=== PATIENT | female | born 1990 | race African-American/Black ===

== ENCOUNTER 2022-11-10 23:17 | Emergency (ER) | payer OTHER ==
--- OUTSIDE RECORDS SUMMARY | 2022-11-10 23:23 | XMS REPORT | Continuity of Care Document ---
:1990 Author Organization [facility] t Address [address] [place] [address] Care Team Providers Name Role Phone Davy HESTER, Rosie Burt Primary Care Physician [phone] Raisa Ni Attending Clinician Unavailable MAYELA BLANK Attending Clinician Unavailable Reagan Byrd Attending Clinician Unavailable Kisha Velez Attending Clinician Unavailable Elayne Mathews Attending Clinician ELAYNE MATHEWS Attending Clinician Unavailable Johny Calvert Attending Clinician JOHNY CALVERT Attending Clinician Unavailable Reagan Byrd Admitting Clinician Unavailable MAYELA BLANK Admitting Clinician Unavailable Payers Payer Name Policy Type Policy Number Effective Date Expiration Date Reed coffey [facility] [id number] 2020 00:00:00 [employer] PLAN STAR Problems Condition Condition Condition Status Onset Resolution Last Treating Co mments Source Name Details Category Date Date Treatment Clinician Date 6 WEEKS 6 WEEKS Diagnosis Active 2019-042020-02-14 [facility] PREG/PAP PREG/PAP 04-15 01:10:00 l Active 00:00: [place] 02/14/2020 [facility] PELVIC PELVIC Diagnosis Active 2019-042020-02-20 Me moria PAIN/PREGN PAIN/PREGN 04-10 05:15:00 l ANT ANT Active 00:00: Ambrosio n 02/09/2020 00 [facility] Anxiety Anxiety Disease Active Methodi 05-12 st 00:00: Hospita 00 l Adiposity Adiposity Disease Active Met hodi 05-12 [facility] 00:00: Hospita 00 l Acute Acute Disease Active Methodi streptococ streptococ 05-12 jody jody 00:00: Hospita pharyngiti pharyngiti 00 l s s Vitamin D Vitamin D Disease Active Met hodi deficiency deficiency 05-12 00:00: Hospita 00 l History of Past Illness Condition Condition Condition Status Onset Resolution Last Treating Co mments Source Name Details Category Date Date Treatment Clinician Date Encounter Problem 2019-042020-02-16 2020-02-16 Memoria for Encounter 04-15 22:03:48 22:03:48 l supervisio for 18:00: Ambrosio n n of supervisio 00 normal n of , normal unspecifie , d, unspecifie unspecifie d, d unspecifie trimester d trimester 02/14/2020 0 [place] Other Other Problem 2019-042020-02-11 2020-02-11 M emoria specified specified 04-10 22:05:48 22:05:48 l 18:00: Herm arsen related related 00 conditions conditions , , unspecifie unspecifie d d trimester trimester 02/09/2020 02/11/2020 [place] Allergies, Adverse Reactions, Alerts Allergy Allergy Status Severity Reaction(s) Onset Inactive Treating Comm ents Source Name Type Date Date Clinician No Known DA Active [facility] [place] metronid DA Active MO ITCHING [facility] azole -22 [facility] 00:[facility] [place] No Known DA Active U [facility] Allergie 7-17 [facility] 00:[facility] [place] Metronid Propensi Active 2017-04 Upset [facility] azole ty to 0-27 stomach Health adverse 00:00: reaction 00 s to drug No Known Propensi Active Other (See Ga thodi Drug ty to Comments) 05-12 st Allergie adverse 00:00: Hospita s reaction 00 l s to drug Flagyl Flagyl Active Joanneoria levi Kaur Family History Family Member Diagnosis Comments Start Date Stop Date Source Maternal grandfather Prostate cancer [facility] Maternal grandfather Diabetes Meth [facility] Maternal grandfather Heart disease [facility] Maternal grandmother Hypertension [facility] Social History Social Habit Start Date Stop Date Quantity Comments Source History of tobacco Cigarette smoker Yazidism use (finding) [facility] Gender identity [facility] Sexual orientation Method [facility] Alcohol intake 2018-01-27 2018-01-27 Current drinker Kiki mandujano [facility] 00:00:00 00:00:00 of alcohol (finding) Alcohol Comment 2018-01-27 2018-01-27 ~[address] [facility] 00:00:00 00:00:00 other weekend Tobacco use and 2017-01-30 2017-01-30 Smokeless tobacco [facility] exposure 00:00:00 00:00:00 non-user History of Social 2015-11-12 2015-11-12 [facility] function 00:00:00 00:00:00 Hospital Tobacco Comment 2015-11-12 2015-11-12 hookah occasional [facility] 00:00:00 00:00:00 [facility] Sex Ass[birth year] At [birth year] Y[facility]idism 00:00:00 00:00:00 Hospital Smoking Status Start Date Stop Date Source Social History [facility] Light tobacco smoker 2015-11-12 00:00:00 [facility] Medications Ordered Filled Start Stop Current Ordering Indication Dosage Frequency Signature Comments Components Source Medication Medication Date Date Medication? Clinician (SIG) Name Name sulfamethox 2017-04 Yes Acute lower 1{tbl} Q.5D Take 1 [facility] azole-trime 0-27 UTI tablet by [facility] thoprim 00:00: (urinary mouth 2 (BACTRIM 00 tract times DS) 800-160 infection) daily. mg per tablet sulfamethox 2017-04 Yes Acute lower 1{tbl} Q.5D Take 1 [facility] azole-trime 0-27 UTI tablet by [facility] thoprim 00:00: (urinary mouth 2 (BACTRIM 00 tract times DS) 800-160 infection) daily. mg per tablet sulfamethox 2017-04 Yes Acute lower 1{tbl} Q.5D Take 1 [place] azole-trime 0-[address] [facility]: (urinary mouth 2 (BACTRIM 00 tract times DS) 800-160 infection) daily. mg per tablet PHENAZOPYRI 2016-0 Yes Take by Met hodi DINE HCL 8-[address] (AZO ORAL) 14:34: Hospita 51 l PHENAZOPYRI 2016-0 Yes Take by Met hodi DINE HCL 8-[address] (AZO ORAL) 14:34: Hospita 51 l PHENAZOPYRI 2016-0 Yes Take by Met hodi DINE HCL 8-[address] (AZO ORAL) 14:34: Hospita 51 l Immunizations Ordered Immunization Filled Immunization Date Status Commen ts Source Name Name Hepatitis A - 2017-03-17 Completed [facility] Hepatitis B 00:00:00 Hepatitis A - 2017-03-17 Completed [facility] Hepatitis B 00:00:00 Hepatitis A - 2017-03-17 Completed [facility] Hepatitis B 00:00:00 Hepatitis A - 2017-03-17 Completed [facility] Hepatitis B 00:00:00 Hepatitis A - 2017-03-17 Completed [facility] Hepatitis B 00:00:00 Hepatitis A - 2017-03-17 Completed [facility] Hepatitis B 00:00:00 Influenza Vaccine, 2017-01-30 Completed [facility] Seasonal, Injectable 00:00:00 Tdap (Tetanus 2017-01-30 Completed [facility] Toxoid, Reduced 00:00:00 Diphtheria Toxoid And Acellular Pertussis, Absorbed) Hepatitis A - 2017-01-30 Completed [facility] Hepatitis B 00:00:00 Influenza Vaccine, 2017-01-30 Completed [facility] Seasonal, Injectable 00:00:00 Tdap (Tetanus 2017-01-30 Completed [facility] Toxoid, Reduced 00:00:00 Diphtheria Toxoid And Acellular Pertussis, Absorbed) Hepatitis A - 2017-01-30 Completed [facility] Hepatitis B 00:00:00 Influenza Vaccine, 2017-01-30 Completed [facility] Seasonal, Injectable 00:00:00 Tdap (Tetanus 2017-01-30 Completed [facility] Toxoid, Reduced 00:00:00 Diphtheria Toxoid And Acellular Pertussis, Absorbed) Hepatitis A - 2017-01-30 Completed [facility] Hepatitis B 00:00:00 Vital Signs Vital Name Observation Time Observation Value Comments Source Temperature Oral (F) 2020-02-14 09:12:00 98.2 F [facility] Heart Rate 2020-02-14 09:12:00 [facility] Respitory Rate 2020-02-14 09:12:00 [facility] [place] Systolic (mm Hg) 2020-02-14 09:12:00 Jm [facility] Diastolic (mm Hg) 2020-02-14 09:12:00 Mem [facility] Weight 2020-02-14 06:35:00 [facility] Systolic (mm Hg) 2020-02-14 06:35:00 Jm rial [place] Diastolic (mm Hg) 2020-02-14 06:35:00 Mem orial [place] Heart Rate 2020-02-14 06:35:00 [facility] Respitory Rate 2020-02-14 06:35:00 [facility] [place] Temperature Oral (F) 2020-02-14 06:35:00 98.9 F [facility] [place] Systolic (mm Hg) 2020-02-09 10:32:00 Jm rial [place] Diastolic (mm Hg) 2020-02-09 10:32:00 Mem o[facility] Rate 2020-02-09 10:32:00 [facility] [place] Respitory Rate 2020-02-09 10:32:00 [facility] [place] Temperature Oral (F) 2020-02-09 10:32:00 98.1 F [facility] Height 2020-02-09 07:26:00 172.72 cm [facility] [place] BMI Calculated 2020-02-09 07:26:00 [facility] [place] Weight 2020-02-09 07:26:00 [facility] Systolic (mm Hg) 2020-02-09 07:26:00 Jm rial [place] Diastolic (mm Hg) 2020-02-09 07:26:00 Mem orial [facility] Heart Rate 2020-02-09 07:26:00 [facility] Respitory Rate 2020-02-09 07:26:00 [facility] Temperature Oral (F) 2020-02-09 07:26:00 98.2 F [facility] Procedures Procedure Date / Time Performed Performing Clinician Da howe [id number] 2022-04-25 00:00:00 [facility] Plan of Care Planned Activity Planned Date Details Comments Source Future Scheduled 2023-01-01 IMM Influenza [facility] 00:00:00 Seasonal (>/= 19 yrs) [code = IMM Influenza Seasonal (>/= 19 yrs)] Future Scheduled 2022-11-02 COVID-19 VACCINE [facility] Test 10:33:09 (#1) [code = COVID-19 VACCINE (#1)] Future Scheduled 2022-11-02 Screening for [facility] Test 10:33:09 malignant neoplasm of cervix (procedure) [code = 225422153] Future Scheduled 2022-11-02 INFLUENZA VACCINE [facility] Test 10:33:09 [code = INFLUENZA VACCINE] Future Scheduled 2022-07-06 IN[facility]UENZA VACCINE [facility] Test 13:09:51 [code = INFLUENZA VACCINE] Future Scheduled 2022-07-06 COVID-19 VACCINE [facility] Test 13:09:51 (#1) [code = COVID-19 VACCINE (#1)] Future Scheduled 2022-07-06 [facility] Test 13:09:51 malignant neoplasm of cervix (procedure) [code = 924641736] Future Scheduled 2022-03-23 COVID-19 VACCINE [facility] Test 12:52:05 (#1) [code = COVID-19 VACCINE (#1)] Future Scheduled 2022-03-23 [facility] for [facility] Test 12:52:05 malignant neoplasm of cervix (procedure) [code = 250845823] Future Scheduled 2022-03-23 INFLUENZA VACCINE [facility] Test 12:52:05 [code = INFLUENZA VACCINE] Future Scheduled 2022-01-01 IMM Influenza [facility] 00:00:00 Seasonal (>/= 19 yrs) [code = IMM Influenza Seasonal (>/= 19 yrs)] Future Scheduled 2022-01-01 IMM Influenza [facility] 00:00:00 Seasonal (>/= 19 yrs) [code = IMM Influenza Seasonal (>/= 19 yrs)] Future Scheduled 2019-08-25 [facility] 00:00:00 malignant neoplasm of cervix (procedure) [code = 298771162] Future Scheduled 2019-08-25 [facility] 00:00:00 malignant neoplasm of cervix (procedure) [code = 393344953] Future Scheduled 2019-08-25 [facility] 00:00:00 malignant neoplasm of cervix (procedure) [code = 676401128] Future Scheduled 2019-08-25 [facility] 00:00:00 malignant neoplasm of cervix (procedure) [code = 099782770] Future Scheduled 2019-08-25 [facility] 00:00:00 malignant neoplasm of cervix (procedure) [code = 359742492] Future Scheduled 2019-08-25 [facility] 00:00:00 malignant neoplasm of cervix (procedure) [code = 853732233] Future Scheduled 1990-02-24 COVID-19 Vaccine [facility] Test 00:00:00 (#1) [code = COVID-19 Vaccine (#1)] Future Scheduled 1990-02-24 COVID-19 Vaccine [facility] Test 00:00:00 (#1) [code = COVID-19 Vaccine (#1)] Future Scheduled 1990-02-24 COVID-19 Vaccine [facility] Test 00:00:00 (#1) [code = COVID-19 Vaccine (#1)] Encounters Start End Encounter Admission Attending Care Care Encounter Source Date/Time Date/Time Type Type Clinicians Facility Department ID 2022-07-18 2022-07-18 Outpatient Raisa Lugo [facility] [id number] [facility] 09:02:00 09:02:00 [facility] 2022-07-12 2022-07-12 Outpatient JI BLANK Davian [id number] [place] 05:57:52 05:57:52 [facility] 2022-04-24 2022-04-27 Inpatient EM SONYA Byrd OBPP [id number] [facility] 09:53:00 09:53:00 Reagan 23 [facility] [place] 2021-10-17 2021-10-17 Emergency EM Evie Hernandez [facility] [id number] [facility] 01:46:00 05:11:00 Kisha [id number] [facility] [place] 2021-10-17 2021-10-17 Emergency EM TARA Velez COURT[facility] [id number] [facility] 01:46:00 05:11:00 Kisha [facility] 2020-02-14 2020-02-14 Emergency [facility] [id number] [facility] 06:31:07 09:15:00 [facility] 01 [facility] 2020-02-14 2020-02-14 Emergency [facility] [id number] [facility] 06:31:07 09:15:00 r [facility] 01 [facility] 2020-02-14 2020-02-14 Outpatient [place], MHPL MHPL [id number] 00:31:07 03:15:00 [facility] 2020-02-14 2020-02-14 Emergency E FADABDIOLE, MHBL MHBL [id number] MHBL 00:31:00 03:15:00 [facility] 2020-02-09 2020-02-09 Emergency [facility] [id number] [facility] 07:13:28 10:34:00 r [facility] 00 [facility] 2020-02-09 2020-02-09 Emergency [facility] [id number] [facility] 07:13:28 10:34:00 r [facility] 00 [facility] 2020-02-09 2020-02-09 Outpatient Johny Calvert MHPL MHPL [id number] 01:13:28 04:34:00 R Sulema 2020-02-09 2020-02-09 Emergency E JOHNY CALVERT MHBL MHBL [id number] MHBL 01:13:00 04:34:00 2018-01-27 2018-01-27 [facility] [id number] [place] 11:23:31 11:23:31 Health 2017-07-05 2017-07-05 [facility] [id number] [place] 00:00:00 00:00:00 Health 2017-05-05 2017-05-05 [facility]patient [facility] [id number] [place] 00:00:00 00:00:00 Health 2017-05-01 2017-05-01 [facility] [id number] [place] 09:08:43 09:08:43 Health 2017-04-28 2017-04-28 [facility] [id number] [place] 15:35:52 15:35:52 Health 2017-04-28 2017-04-28 [facility] [id number] [place] 00:00:00 00:00:00 Health 2017-04-11 2017-04-11 [facility] [id number] [place] 10:07:11 10:07:11 Health 2017-04-11 2017-04-11 [facility]patient [facility] [id number] [place] 00:00:00 00:00:00 Health 2017-03-23 2017-03-23 [facility] [id number] [place] 00:00:00 00:00:00 Health 2017-03-17 2017-03-17 [facility] [id number] [place] 15:34:52 15:34:52 Health 2017-03-17 2017-03-17 [facility] [id number] [place] 00:00:00 00:00:00 Health 2017-02-27 2017-02-27 [facility] [id number] [place] 00:00:00 00:00:00 Health 2017-01-30 2017-01-30 [facility] [id number] [place] 10:23:58 10:23:58 Health 2017-01-30 2017-01-30 [facility] [id number] [place] 09:10:25 09:10:25 Health Results Test Description Test Time Test Comments Results Result [facility] e Comments - US PELVIS 2022-07-18 COMPLETE 00:00:00 [facility] 1990 Sex: F Patient Name: JACK AGIURRE Unit No: [id number] EXAMS: CPT CODE: [id number] US PELVIS COMPLETE [id number] PROCEDURE INFORMATION: Exam: US Pelvis Complete (Transabdominal), Pelvis (Transvaginal), and US Duplex Artery or Vein (Ovaries) Limited Exam date and time: 07/18/2022 9:32 AM Age: 31 years old Clinical indication: Pelvic pain; Additional info: Pel pain LABS AND CLINICAL REPORTS: Last menstrual period start date: 07/04/2022 TECHNIQUE: Imaging protocol: Real-time transabdominal and transvaginal pelvic ultrasound (complete) with image documentation. Transvaginal imaging was used for better evaluation of the endometrium, adnexa, and/or cervix. Real-time duplex ultrasound scan of the arterial or venous flow of the ovaries with B-mode, color Doppler flow and spectral waveform analysis. Complete Pelvis, Limited Duplex. Duplex exam was performed to evaluate for torsion and other vascular conditions. COMPARISON: No relevant prior studies available. FINDINGS: Uterus: Anteverted uterus measures 9.1 x 4.2 x 5.7 cm. Normal contour and myometrial echogenicity. The endometrium is homogeneous and measures 1.1 cm in thickness. Trace fluid along the endometrial canal. 1.8 x 1.1 x 1.3 cm subserosal fibroid in the anterior uterine body. Right ovary/adnexa: The right ovary measures 3.5 x 1.9 x 2.7 cm. Normal contour. Dominant follicle measures 1.9 cm in diameter. Normal blood flow by color and spectral Doppler. Left ovary/adnexa: The left ovary measures 2.5 x 1.4 x 2.1 cm. Normal contour. Normal blood flow by color and spectral Doppler. Intraperitoneal space: No intraperitoneal fluid. Urinary bladder: Visualized bladder is unremarkable. IMPRESSION: 1. Small subserosal uterine fibroid. 2. Trace fluid along the endometrial canal. at 1213 Reported and signed by: Nathanael Romero MD CC: Raisa Ni MD Technologist: Paris Pena RDMS Probe: Trnscrbd D/ (1213) GCD.CPS Orig Print D/T: S: 07/18/2022 (1213) [facility] NAME: KARYNAJACK Radiology Department PHYS: Raisa Veras MD [address] : 1990 AGE: 31 SEX: F [place], [place] [address] LOC: F.RAD PHONE #: [phone] EXAM DATE: 07/18/2022 STATUS: REG CLI FAX #: [phone] RAD NO: Page 1 Signed Report Patient Name: JACK AGUIRRE Unit No: [id number] EXAMS: CPT CODE: [id number] US PELVIS COMPLETE [id number] (Continued) [facility] NAME: JACK AGUIRRE Radiology Department PHYS: Raisa Veras MD [address] : 1990 AGE: 31 SEX: F [place], [place] [address] LOC: Rodrigo.RAD PHONE #: [phone] EXAM DATE: 07/18/2022 STATUS: REG CLI FAX #: [phone] RAD NO: Page 2 Signed Report - DUP AB/PEL/SC/LTD 2022-07-18 00:00:00 [facility] 1990 Sex: F Patient Name: JACK AGUIRRE Unit No: [id number] EXAMS: CPT CODE: [id number] DUP AB/PEL/SC/LTD 41281 PROCEDURE INFORMATION: Exam: US Pelvis Complete (Transabdominal), Pelvis (Transvaginal), and US Duplex Artery or Vein (Ovaries) Limited Exam date and time: 07/18/2022 9:32 AM Age: 31 years old Clinical indication: Pelvic pain; Additional info: Pel pain LABS AND CLINICAL REPORTS: Last menstrual period start date: 07/04/2022 TECHNIQUE: Imaging protocol: Real-time transabdominal and transvaginal pelvic ultrasound (complete) with image documentation. Transvaginal imaging was used for better evaluation of the endometrium, adnexa, and/or cervix. Real-time duplex ultrasound scan of the arterial or venous flow of the ovaries with B-mode, color Doppler flow and spectral waveform analysis. Complete Pelvis, Limited Duplex. Duplex exam was performed to evaluate for torsion and other vascular conditions. COMPARISON: No relevant prior studies available. FINDINGS: Uterus: Anteverted uterus measures 9.1 x 4.2 x 5.7 cm. Normal contour and myometrial echogenicity. The endometrium is homogeneous and measures 1.1 cm in thickness. Trace fluid along the endometrial canal. 1.8 x 1.1 x 1.3 cm subserosal fibroid in the anterior uterine body. Right ovary/adnexa: The right ovary measures 3.5 x 1.9 x 2.7 cm. Normal contour. Dominant follicle measures 1.9 cm in diameter. Normal blood flow by color and spectral Doppler. Left ovary/adnexa: The left ovary measures 2.5 x 1.4 x 2.1 cm. Normal contour. Normal blood flow by color and spectral Doppler. Intraperitoneal space: No intraperitoneal fluid. Urinary bladder: Visualized bladder is unremarkable. IMPRESSION: 1. Small subserosal uterine fibroid. 2. Trace fluid along the endometrial canal. at 1213 Reported and signed by: Nathanael Romero MD CC: Raisa Ni MD Technologist: Paris Pena RDMS Probe: Trnscrbd D/ (1213) GCD.CPS Orig Print D/T: S: 07/18/2022 (1213) [facility] NAME: JACK AGUIRRE Radiology Department PHYS: Raisa Veras MD [address] : 1990 AGE: 31 SEX: F [place], [place] [address] LOC: BarryRAD PHONE #: [phone] EXAM DATE: 07/18/2022 STATUS: REG CLI FAX #: [phone] RAD NO: Page 1 Signed Report Patient Name: JACK AGUIRRE Unit No: [id number] EXAMS: CPT CODE: [id number] DUP AB/PEL/SC/LTD 21881 (Continued) [facility] NAME: JACK AGUIRRE Radiology Department PHYS: Raisa Veras MD [address] : 1990 AGE: 31 SEX: [place] [address] LOC: F.RAD PHONE #: [phone] EXAM DATE: 07/18/2022 STATUS: REG CLI FAX #: [phone] RAD NO: Page 2 Signed Report - US TRANSVAGINAL 2022-07-18 W/PELVIS 00:00:00 [facility] 1990 Sex: F Patient Name: JACK AGUIRRE Unit No: [id number] EXAMS: CPT CODE: [id number] US TRANSVAGINAL W/PELVIS 17010 PROCEDURE INFORMATION: Exam: US Pelvis Complete (Transabdominal), Pelvis (Transvaginal), and US Duplex Artery or Vein (Ovaries) Limited Exam date and time: 07/18/2022 9:32 AM Age: 31 years old Clinical indication: Pelvic pain; Additional info: Pel pain LABS AND CLINICAL REPORTS: Last menstrual period start date: 07/04/2022 TECHNIQUE: Imaging protocol: Real-time transabdominal and transvaginal pelvic ultrasound (complete) with image documentation. Transvaginal imaging was used for better evaluation of the endometrium, adnexa, and/or cervix. Real-time duplex ultrasound scan of the arterial or venous flow of the ovaries with B-mode, color Doppler flow and spectral waveform analysis. Complete Pelvis, Limited Duplex. Duplex exam was performed to evaluate for torsion and other vascular conditions. COMPARISON: No relevant prior studies available. FINDINGS: Uterus: Anteverted uterus measures 9.1 x 4.2 x 5.7 cm. Normal contour and myometrial echogenicity. The endometrium is homogeneous and measures 1.1 cm in thickness. Trace fluid along the endometrial canal. 1.8 x 1.1 x 1.3 cm subserosal fibroid in the anterior uterine body. Right ovary/adnexa: The right ovary measures 3.5 x 1.9 x 2.7 cm. Normal contour. Dominant follicle measures 1.9 cm in diameter. Normal blood flow by color and spectral Doppler. Left ovary/adnexa: The left ovary measures 2.5 x 1.4 x 2.1 cm. Normal contour. Normal blood flow by color and spectral Doppler. Intraperitoneal space: No intraperitoneal fluid. Urinary bladder: Visualized bladder is unremarkable. IMPRESSION: 1. Small subserosal uterine fibroid. 2. Trace fluid along the endometrial canal. at 1213 Reported and signed by: Nathanael Romero MD CC: Raisa Ni MD Technologist: Paris Pena RDMS Probe: [id number] Trnscrbd D/ (1213) GCD.CPS Orig Print D/T: S: 07/18/2022 (1213) [facility] NAME: JACK AGUIRRE Radiology Department PHYS: Raisa Veras MD [address] : 1990 AGE: 31 SEX: F [place] [address] LOC: F.RAD PHONE #: [phone] EXAM DATE: 07/18/2022 STATUS: REG CLI FAX #: [phone] RAD NO: Page 1 Signed Report Patient Name: JACK AGUIRRE Unit No: [id number] EXAMS: CPT CODE: [id number] US TRANSVAGINAL W/PELVIS 19672 (Continued) [facility] NAME: JACK AGUIRRE Radiology Department PHYS: Raisa Veras MD [address] : 1990 AGE: 31 SEX: F [place] [address] LOC: SIENA PHONE #: [phone] EXAM DATE: 07/18/2022 STATUS: REG CHEL FAX #: [phone] RAD NO: Page 2 Signed Report HGB HCT 2022-04-26 13:46:00 Test Item Value Reference Range Interpretation Comme nts HEMOGLOBIN (test code = HGB) 10.5 g/dL 10.1-13.8 N HEMATOCRIT (test code = HCT) 32.8 % 32.5-41.8 N AG HEPATITIS B [id number] 12:19:00 Test Item Value Reference Range Interpretation Comments AG HEPATITIS B SURFACE (test code NONREACTIVE NONREACTIVE = HBSAG) AB HEPATITIS C [id number] 12:19:00 Test Item Value Reference Range Interpretation Comments AB HEPATITIS C (test code = NONREACTIVE NONREACTIVE HCVAB) SIGNAL TO CUTOFF (test code = <0.02 <0.80 N CUTOFF) AB [id number] 12:19:00 Test Item Value Reference Range Interpretation Comments AB TREPONEMA (test code = TREPAB) NONREACTIVE NONREACTIVE AB HIV 1 12:19:00 Test Item Value Reference Range Interpretation Comments AB HIV 1 2 (test NONREACTIVE NONREACTIVE Done by [facility] code = [id number]) 4th Gen HIV Ag/Ab Combo Screen CBC W/AUTO [id number] 10:35:00 Test Item Value Reference Range Interpretation Comments WHITE BLOOD CELL (test code = WBC) 6.6 K/mm3 6.5-12.3 N RED BLOOD CELL (test code = RBC) 4.17 M/mm3 3.51-4.69 N HEMOGLOBIN (test code = HGB) 11.9 g/dL 10.1-13.8 N HEMATOCRIT (test code = HCT) 36.4 % 32.5-41.8 N MEAN CELL VOLUME (test code = MCV) 87.3 fL 84.6-96.6 N MEAN CELL HGB (test code = MCH) 28.5 pg 27.3-33.9 N MEAN CELL HGB CONCETRATION (test 32.7 gm/dL 32.0-34.2 N code = MCHC) RED CELL DISTRIBUTION WIDTH (test 14.2 % 12.2-16.3 N code = RDW) PLATELET COUNT (test code = PLT) 163 K/mm3 134-363 N MEAN PLATELET VOLUME (test code = 12.6 fL 9.2-12.7 N MPV) NEUTROPHIL % (test code = NT%) 68.9 % 57.9-77.3 N LYMPHOCYTE % (test code = LY%) 25.5 % 14.5-29.7 N MONOCYTE % (test code = MO%) 4.4 % 3.6-10.2 N EOSINOPHIL % (test code = EO%) 0.6 % 0.0-3.0 N BASOPHIL % (test code = BA%) 0.3 % 0.1-0.9 N NEUTROPHIL # (test code = NT#) 4.6 K/mm3 LYMPHOCYTE # (test code = LY#) 1.7 K/mm3 MONOCYTE # (test code = MO#) 0.3 K/mm3 EOSINOPHIL # (test code = EO#) 0.04 K/mm3 BASOPHIL # (test code = BA#) 0.0 K/mm3 RBC MORPHOLOGY REQUIRED (test code NORMAL NORMAL = RBCM) PLATELET MORPHOLOGY REQUIRED (test NORMAL NORMAL code = PLTMR) UA RFLX MICR CULT IF [id number] 05:15:00 Test Item Value Reference Range Interpretation Comments UA COLOR (test code = COLU) YELLOW YELLOW UA APPEARANCE (test code = Slightly-Cloudy CLEAR APPU) UA GLUCOSE DIPSTICK (test NEGATIVE NEG code = DGLUU) UA BILIRUBIN DIPSTICK (test NEGATIVE NEG code = BILU) UA KETONE DIPSTICK (test code NEGATIVE NEG = KETU) UA SPECIFIC GRAVITY (test 1.031 1.001-1.035 N code = SGU) UA BLOOD DIPSTICK (test code NEG NEG = DEBRA) UA PH DIPSTICK (test code = 5.0 5-9 LETICIA) UA PROTEIN DIPSTICK (test NEGATIVE NEG code = PROU) UA UROBILINIOGEN DIPSTICK NEGATIVE mg/dL NEG (test code = URO) UA NITRITE DIPSTICK (test NEG NEG code = ANDRE) UA LEUKOCYTE ESTERASE NEG NEG DIPSTICK (test code = LEUU) UA WBC (test code = WBCU) 0-2 #/hpf NONE SEEN UA RBC (test code = RBCU) 0-2 #/hpf NONE SEEN UA EPITHELIAL CELLS (test MODERATE #/HPF RARE-FEW A code = EPIU) UA MUCUS (test code = MUCU) RARE NONE SEEN Indication for culture: Suprapubic PainSpecimen Description: CLEAN CATCH COMPREHENSIVE METABOLIC [id number] 02:53:00 Test Item Value Reference Range Interpretation Comments SODIUM (test code = NA) 132 mEq/L 135-145 L POTASSIUM (test code = K) 3.8 mEq/L 3.5-5.0 N CHLORIDE (test code = CL) 101 mEq/L 100-115 N CARBON DIOXIDE (test code = CO2) 25 mEq/L 22-31 N ANION GAP (test code = GAP) 10.10 10-20 N GLUCOSE (test code = GLU) 116 mg/dL 65-110 H BLOOD UREA NITROGEN (test code = 14 mg/dL 7-18 N BUN) GLOMERULAR FILTRATION RATE (test 64 ml/min >60 N code = GFR) CREATININE (test code = CREAT) 1.1 mg/dL 0.5-1.0 H TOTAL PROTEIN (test code = PROT) 7.5 gm/dL 6.3-8.2 N ALBUMIN (test code = ALB) 3.1 gm/dL 3.4-4.8 L CALCIUM (test code = CA) 8.7 mg/dL 8.4-10.2 N BILIRUBIN TOTAL (test code = BILT) 0.2 mg/dL 0.2-1.0 N SGOT/AST (test code = AST) 16 units/L 15-37 N SGPT/ALT (test code = ALT) 33 units/L 12-78 N ALKALINE PHOSPHATASE TOTAL (test 59 units/L 46-116 N code = ALKP) COVID 19 Asymptomatic IH [id number] 02:37:00 Test Item Value Reference Range Interpretation Comments COVID 19 NEGATIVE NEGATIVE This test has b een Asymptomatic IH AG authorize d only for the (test code = detection ofpro teins from COVNONPUIAG) SARS-CoV-2, not for any other viruses orpathogens. Ne gative results should be treated as presumptive andconfirmed wi th a molecular assay , if necessary for patientmanageme nt. Negative result s do not rule out COVID- 19 andshould not b e used as the sole basis for treatment orpat ient management deci sions, including infec tion controldecision s. Negative result s should be considered i n thecontext of a patient's recent exposure s, history and thepresence of clinical signs and symptoms consis tent withCOVID-19. T his test has not been FD A cleared or approved; th e test hasbeen authori yane by FDA under an Emerge ncy Use Authorization(E UA) for use by laborato sanjay certified under the CLIA thatmeet the re quirements to perform mode rate, high or waivedcomple xity tests. This milan t is authorized for use at thePoint of Car e (POC), i.e., in patien t care settingsoperati ng under a CLIA Certificat e of Waiver, Certifi franca ofCompliance, o r Certificate of Accreditation. This test is only authori yane for the duration of thedeclaration that circumstances e xist justifying theauthorizatio n of emergency use o f in vitro diagnostic test sfor detection and/o r diagnosis of CO VID-19 under Bikrzur87 4(b)(1) of the Act, 21 U.S .C. 360bbb-3(b)(1), unless theauthorizatio n is terminated or r evoked sooner. CBC W/AUTO [id number] 02:25:00 Test Item Value Reference Range Interpretation Comments WHITE BLOOD CELL (test code = WBC) 7.6 K/mm3 6.5-12.3 N RED BLOOD CELL (test code = RBC) 4.37 M/mm3 3.51-4.69 N HEMOGLOBIN (test code = HGB) 12.9 g/dL 10.1-13.8 N HEMATOCRIT (test code = HCT) 39.3 % 32.5-41.8 N MEAN CELL VOLUME (test code = MCV) 89.9 fL 84.6-96.6 N MEAN CELL HGB (test code = MCH) 29.5 pg 27.3-33.9 N MEAN CELL HGB CONCETRATION (test 32.8 gm/dL 32.0-34.2 N code = MCHC) RED CELL DISTRIBUTION WIDTH (test 13.5 % 12.2-16.3 N code = RDW) PLATELET COUNT (test code = PLT) 254 K/mm3 134-363 N MEAN PLATELET VOLUME (test code = 9.8 fL 9.2-12.7 N MPV) NEUTROPHIL % (test code = NT%) 66.6 % 57.9-77.3 N LYMPHOCYTE % (test code = LY%) 25.5 % 14.5-29.7 N MONOCYTE % (test code = MO%) 6.6 % 3.6-10.2 N EOSINOPHIL % (test code = EO%) 0.7 % 0.0-3.0 N BASOPHIL % (test code = BA%) 0.3 % 0.1-0.9 N NEUTROPHIL # (test code = NT#) 5.1 K/mm3 LYMPHOCYTE # (test code = LY#) 1.9 K/mm3 MONOCYTE # (test code = MO#) 0.5 K/mm3 EOSINOPHIL # (test code = EO#) 0.05 K/mm3 BASOPHIL # (test code = BA#) 0.0 K/mm3 RBC MORPHOLOGY REQUIRED (test code NORMAL NORMAL = RBCM) PLATELET MORPHOLOGY REQUIRED (test NORMAL NORMAL code = PLTMR) [id number] 08:10:00 Test Item Value Reference Range Interpretation Comments hCG Tot (test code = hCG Tot) [id number] [id number] 08:10:00 Test Item Value Reference Range Interpretation Comments hCG Tot (test code = hCG Tot) [id number] [facility] [id number] 08:10:00 Test Item Value Reference Range Interpretation Comments hCG Tot (test code = hCG Tot) [address] [facility] [id number] 08:10:00 Test Item Value Reference Range Interpretation Comments hCG Tot (test code = hCG Tot) [address] [facility] [id number] 08:10:00 Test Item Value Reference Range Interpretation Comments hCG Tot (test code = hCG Tot) [id number] [facility] [id number] 08:10:00 Test Item Value Reference Range Interpretation Comments hCG Tot (test code = hCG Tot) [id number] [facility] [id number] 08:02:00 Test Item Value Reference Range Interpretation Comments UA Color (test code = Yellow *NA*(02/09/20 UA Color) 2:02 AM) [facility] [id number] 08:02:00 Test Item Value Reference Range Interpretation Comments UA Turbidity (test code = Clear (02/09/20 2:02 UA Turbidity) AM) [facility] [id number] 08:02:00 Test Item Value Reference Range Interpretation Comments UA Spec Grav (test code = UA Spec 1.020 1 Grav) [facility] [id number] 08:02:00 Test Item Value Reference Range Interpretation Comments UA pH (test code = UA pH) 5.0 1 5.0-8.0 [facility] [id number] 08:02:00 Test Item Value Reference Range Interpretation Comments UA Color (test code = Yellow *NA*(02/09/20 UA Color) 2:02 AM) [facility] [id number] 08:02:00 Test Item Value Reference Range Interpretation Comments UA Turbidity (test code = Clear (02/09/20 2:02 UA Turbidity) AM) [facility] [id number] 08:02:00 Test Item Value Reference Range Interpretation Comments UA Spec Grav (test code = UA Spec 1.020 1 Grav) [facility] [id number] 08:02:00 Test Item Value Reference Range Interpretation Comments UA pH (test code = UA pH) 5.0 1 5.0-8.0 [facility] [id number] 08:02:00 Test Item Value Reference Range Interpretation Comments UA Protein (test code = UA Negative mg/dL Protein) [facility] [id number] 08:02:00 Test Item Value Reference Range Interpretation Comments UA Glucose (test code = UA Negative mg/dL Glucose) [facility] [id number] 08:02:00 Test Item Value Reference Range Interpretation Comments UA Ketones (test code = UA Negative mg/dL Ketones) [facility] [id number] 08:02:00 Test Item Value Reference Range Interpretation Comments UA Bili (test code = Negative *NA*(02/09/20 UA Bili) 2:02 AM) [facility] [id number] 08:02:00 Test Item Value Reference Range Interpretation Comments UA Blood (test code = Negative (02/09/20 2:02 UA Blood) AM) [facility] [id number] 08:02:00 Test Item Value Reference Range Interpretation Comments UA Nitrite (test code Negative (02/09/20 2:02 = UA Nitrite) AM) [facility] [id number] 08:02:00 Test Item Value Reference Range Interpretation Comments UA Protein (test code = UA Negative mg/dL Protein) [facility] [id number] 08:02:00 Test Item Value Reference Range Interpretation Comments UA Leuk Est (test code Small *ABN*(02/09/20 = UA Leuk Est) 2:02 AM) [facility] [id number] 08:02:00 Test Item Value Reference Range Interpretation Comments UA Sq Epi (test code = UA Sq Epi) Few /LPF [facility] [id number] 08:02:00 Test Item Value Reference Range Interpretation Comments UA WBC (test code = 1 See_Comment [Automa jermain message] The UA WBC) system which ge nerated this result transmit jermian reference range : <=5. The reference range was not used to interpr et this result as janice l/abnormal. [facility] [id number] 08:02:00 Test Item Value Reference Range Interpretation Comments UA RBC (test code = 4 See_Comment [Automa jermain message] The UA RBC) system which ge nerated this result transmit jermain reference range : <=2. The reference range was not used to interpr et this result as janice l/abnormal. [facility] [id number] 08:02:00 Test Item Value Reference Range Interpretation Comments UA Mucus (test code = UA Mucus) Few /LPF [facility] [id number] 08:02:00 Test Item Value Reference Range Interpretation Comments UA Urobilinogen (test code = UA <=1.0 mg/dL 0.1-1.0 Urobilinogen) [facility] [id number] 08:02:00 Test Item Value Reference Range Interpretation Comments UA Glucose (test code = UA Negative mg/dL Glucose) [facility] [id number] 08:02:00 Test Item Value Reference Range Interpretation Comments UA Ketones (test code = UA Negative mg/dL Ketones) [facility] [id number] 08:02:00 Test Item Value Reference Range Interpretation Comments UA Bili (test code = Negative *NA*(02/09/20 UA Bili) 2:02 AM) [facility] [id number] 08:02:00 Test Item Value Reference Range Interpretation Comments UA Color (test code = Yellow *NA*(02/09/20 UA Color) 2:02 AM) [facility] [id number] 08:02:00 Test Item Value Reference Range Interpretation Comments UA Turbidity (test code = Clear (02/09/20 2:02 UA Turbidity) AM) [facility] [id number] 08:02:00 Test Item Value Reference Range Interpretation Comments UA Blood (test code = Negative (02/09/20 2:02 UA Blood) AM) [facility] [id number] 08:02:00 Test Item Value Reference Range Interpretation Comments UA Spec Grav (test code = UA Spec 1.020 1 Grav) [facility] [id number] 08:02:00 Test Item Value Reference Range Interpretation Comments UA pH (test code = UA pH) 5.0 1 5.0-8.0 [facility] [id number] 08:02:00 Test Item Value Reference Range Interpretation Comments UA Protein (test code = UA Negative mg/dL Protein) [facility] [id number] 08:02:00 Test Item Value Reference Range Interpretation Comments UA Glucose (test code = UA Negative mg/dL Glucose) [facility] [id number] 08:02:00 Test Item Value Reference Range Interpretation Comments UA Ketones (test code = UA Negative mg/dL Ketones) [facility] [id number] 08:02:00 Test Item Value Reference Range Interpretation Comments UA Bili (test code = Negative *NA*(02/09/20 UA Bili) 2:02 AM) [facility] [id number] 08:02:00 Test Item Value Reference Range Interpretation Comments UA Blood (test code = Negative (02/09/20 2:02 UA Blood) AM) [facility] [id number] 08:02:00 Test Item Value Reference Range Interpretation Comments UA Nitrite (test code Negative (02/09/20 2:02 = UA Nitrite) AM) [facility] [id number] 08:02:00 Test Item Value Reference Range Interpretation Comments UA Leuk Est (test code Small *ABN*(02/09/20 = UA Leuk Est) 2:02 AM) [facility] [id number] 08:02:00 Test Item Value Reference Range Interpretation Comments UA Sq Epi (test code = UA Sq Epi) Few /LPF [facility] [id number] 08:02:00 Test Item Value Reference Range Interpretation Comments UA Nitrite (test code Negative (02/09/20 2:02 = UA Nitrite) AM) [facility] [id number] 08:02:00 Test Item Value Reference Range Interpretation Comments UA WBC (test code = 1 See_Comment [Automa jermain message] The UA WBC) system which ge nerated this result transmit jermain reference range : <=5. The reference range was not used to interpr et this result as janice l/abnormal. [facility] [id number] 08:02:00 Test Item Value Reference Range Interpretation Comments UA RBC (test code = 4 See_Comment [Automa jermain message] The UA RBC) system which ge nerated this result transmit jermain reference range : <=2. The reference range was not used to interpr et this result as janice l/abnormal. [facility] [id number] 08:02:00 Test Item Value Reference Range Interpretation Comments UA Mucus (test code = UA Mucus) Few /LPF [facility] [id number] 08:02:00 Test Item Value Reference Range Interpretation Comments UA Urobilinogen (test code = UA <=1.0 mg/dL 0.1-1.0 Urobilinogen) [facility] [id number] 08:02:00 Test Item Value Reference Range Interpretation Comments UA Leuk Est (test code Small *ABN*(02/09/20 = UA Leuk Est) 2:02 AM) [facility] [id number] 08:02:00 Test Item Value Reference Range Interpretation Comments UA Sq Epi (test code = UA Sq Epi) Few /LPF [facility] [id number] 08:02:00 Test Item Value Reference Range Interpretation Comments UA WBC (test code = 1 See_Comment [Automa jermain message] The UA WBC) system which ge nerated this result transmit jermain reference range : <=5. The reference range was not used to interpr et this result as janice l/abnormal. [facility] [id number] 08:02:00 Test Item Value Reference Range Interpretation Comments UA Color (test code = Yellow *NA*(02/09/20 UA Color) 2:02 AM) [facility] [id number] 08:02:00 Test Item Value Reference Range Interpretation Comments UA Turbidity (test code = Clear (02/09/20 2:02 UA Turbidity) AM) [facility] [id number] 08:02:00 Test Item Value Reference Range Interpretation Comments UA Spec Grav (test code = UA Spec 1.020 1 Grav) [facility] [id number] 08:02:00 Test Item Value Reference Range Interpretation Comments UA pH (test code = UA pH) 5.0 1 5.0-8.0 [facility] [id number] 08:02:00 Test Item Value Reference Range Interpretation Comments UA RBC (test code = 4 See_Comment [Automa jermain message] The UA RBC) system which ge nerated this result transmit jermain reference range : <=2. The reference range was not used to interpr et this result as janice l/abnormal. [facility] [id number] 08:02:00 Test Item Value Reference Range Interpretation Comments UA Protein (test code = UA Negative mg/dL Protein) [facility] [id number] 08:02:00 Test Item Value Reference Range Interpretation Comments UA Glucose (test code = UA Negative mg/dL Glucose) [facility] [id number] 08:02:00 Test Item Value Reference Range Interpretation Comments UA Ketones (test code = UA Negative mg/dL Ketones) [facility] [id number] 08:02:00 Test Item Value Reference Range Interpretation Comments UA Bili (test code = Negative *NA*(02/09/20 UA Bili) 2:02 AM) [facility] [id number] 08:02:00 Test Item Value Reference Range Interpretation Comments UA Blood (test code = Negative (02/09/20 2:02 UA Blood) AM) [facility] [id number] 08:02:00 Test Item Value Reference Range Interpretation Comments UA Nitrite (test code Negative (02/09/20 2:02 = UA Nitrite) AM) [facility] [id number] 08:02:00 Test Item Value Reference Range Interpretation Comments UA Leuk Est (test code Small *ABN*(02/09/20 = UA Leuk Est) 2:02 AM) [facility] [id number] 08:02:00 Test Item Value Reference Range Interpretation Comments UA Sq Epi (test code = UA Sq Epi) Few /LPF [facility] [id number] 08:02:00 Test Item Value Reference Range Interpretation Comments UA WBC (test code = 1 See_Comment [Automa jermain message] The UA WBC) system which ge nerated this result transmit jermain reference range : <=5. The reference range was not used to interpr et this result as janice l/abnormal. [facility] [id number] 08:02:00 Test Item Value Reference Range Interpretation Comments UA RBC (test code = 4 See_Comment [Automa jermain message] The UA RBC) system which ge nerated this result transmit jermain reference range : <=2. The reference range was not used to interpr et this result as janice l/abnormal. [facility] [id number] 08:02:00 Test Item Value Reference Range Interpretation Comments UA Mucus (test code = UA Mucus) Few /LPF [facility] [id number] 08:02:00 Test Item Value Reference Range Interpretation Comments UA Mucus (test code = UA Mucus) Few /LPF [facility] [id number] 08:02:00 Test Item Value Reference Range Interpretation Comments UA Urobilinogen (test code = UA <=1.0 mg/dL 0.1-1.0 Urobilinogen) [facility] [id number] 08:02:00 Test Item Value Reference Range Interpretation Comments UA Urobilinogen (test code = UA <=1.0 mg/dL 0.1-1.0 Urobilinogen) [facility] [id number] 08:02:00 Test Item Value Reference Range Interpretation Comments UA Color (test code = Yellow *NA*(02/09/20 UA Color) 2:02 AM) [facility] [id number] 08:02:00 Test Item Value Reference Range Interpretation Comments UA Turbidity (test code = Clear (02/09/20 2:02 UA Turbidity) AM) [facility] [id number] 08:02:00 Test Item Value Reference Range Interpretation Comments UA Spec Grav (test code = UA Spec 1.020 1 Grav) [facility] AND [id number] 08:02:00 Test Item Value Reference Range Interpretation Comments UA pH (test code = UA pH) 5.0 1 5.0-8.0 [facility] AND [id number] 08:02:00 Test Item Value Reference Range Interpretation Comments UA Protein (test code = UA Negative mg/dL Protein) [facility] AND [id number] 08:02:00 Test Item Value Reference Range Interpretation Comments UA Glucose (test code = UA Negative mg/dL Glucose) [facility] AND [id number] 08:02:00 Test Item Value Reference Range Interpretation Comments UA Ketones (test code = UA Negative mg/dL Ketones) [facility] AND [id number] 08:02:00 Test Item Value Reference Range Interpretation Comments UA Bili (test code = Negative *NA*(02/09/20 UA Bili) 2:02 AM) [facility] AND [id number] 08:02:00 Test Item Value Reference Range Interpretation Comments UA Blood (test code = Negative (02/09/20 2:02 UA Blood) AM) [facility] AND [id number] 08:02:00 Test Item Value Reference Range Interpretation Comments UA Nitrite (test code Negative (02/09/20 2:02 = UA Nitrite) AM) [facility] [id number] 08:02:00 Test Item Value Reference Range Interpretation Comments UA Leuk Est (test code Small *ABN*(02/09/20 = UA Leuk Est) 2:02 AM) [facility] AND [id number] 08:02:00 Test Item Value Reference Range Interpretation Comments UA Sq Epi (test code = UA Sq Epi) Few /LPF [facility] [id number] 08:02:00 Test Item Value Reference Range Interpretation Comments UA WBC (test code = 1 See_Comment [Automa jermain message] The UA WBC) system which ge nerated this result transmit jermain reference range : <=5. The reference range was not used to interpr et this result as janice l/abnormal. [facility] [id number] 08:02:00 Test Item Value Reference Range Interpretation Comments UA RBC (test code = 4 See_Comment [Automa jermain message] The UA RBC) system which ge nerated this result transmit jermain reference range : <=2. The reference range was not used to interpr et this result as janice l/abnormal. [facility] [id number] 08:02:00 Test Item Value Reference Range Interpretation Comments UA Mucus (test code = UA Mucus) Few /LPF [facility] [id number] 08:02:00 Test Item Value Reference Range Interpretation Comments UA Urobilinogen (test code = UA <=1.0 mg/dL 0.1-1.0 Urobilinogen) [facility] [id number] 08:02:00 Test Item Value Reference Range Interpretation Comments UA Color (test code = Yellow *NA*(02/09/20 UA Color) 2:02 AM) [facility] [id number] 08:02:00 Test Item Value Reference Range Interpretation Comments UA Turbidity (test code = Clear (02/09/20 2:02 UA Turbidity) AM) [facility] [id number] 08:02:00 Test Item Value Reference Range Interpretation Comments UA Spec Grav (test code = UA Spec 1.020 1 Grav) [facility] [id number] 08:02:00 Test Item Value Reference Range Interpretation Comments UA pH (test code = UA pH) 5.0 1 5.0-8.0 [facility] [id number] 08:02:00 Test Item Value Reference Range Interpretation Comments UA Protein (test code = UA Negative mg/dL Protein) [facility] [id number] 08:02:00 Test Item Value Reference Range Interpretation Comments UA Glucose (test code = UA Negative mg/dL Glucose) [facility] [id number] 08:02:00 Test Item Value Reference Range Interpretation Comments UA Ketones (test code = UA Negative mg/dL Ketones) [facility] [id number] 08:02:00 Test Item Value Reference Range Interpretation Comments UA Bili (test code = Negative *NA*(02/09/20 UA Bili) 2:02 AM) [facility] [id number] 08:02:00 Test Item Value Reference Range Interpretation Comments UA Blood (test code = Negative (02/09/20 2:02 UA Blood) AM) [facility] [id number] 08:02:00 Test Item Value Reference Range Interpretation Comments UA Nitrite (test code Negative (02/09/20 2:02 = UA Nitrite) AM) [facility] AND [id number] 08:02:00 Test Item Value Reference Range Interpretation Comments UA Leuk Est (test code Small *ABN*(02/09/20 = UA Leuk Est) 2:02 AM) [facility] AND [id number] 08:02:00 Test Item Value Reference Range Interpretation Comments UA Sq Epi (test code = UA Sq Epi) Few /[facility] [id number] 08:02:00 Test Item Value Reference Range Interpretation Comments UA WBC (test code = 1 See_Comment [Automa jermain message] The UA WBC) system which ge nerated this result transmit jermain reference range : <=5. The reference range was not used to interpr et this result as janice l/abnormal. [facility] [id number] 08:02:00 Test Item Value Reference Range Interpretation Comments UA RBC (test code = 4 See_Comment [Automa jermain message] The UA RBC) system which ge nerated this result transmit jermain reference range : <=2. The reference range was not used to interpr et this result as janice l/abnormal. [facility] [id number] 08:02:00 Test Item Value Reference Range Interpretation Comments UA Mucus (test code = UA Mucus) Few /LPF [facility] [id number] 08:02:00 Test Item Value Reference Range Interpretation Comments UA Urobilinogen (test code = UA <=1.0 mg/dL 0.1-1.0 Urobilinogen) [facility]2020-11-08 07:43:00 Test Item Value Reference Range Interpretation Comments BUN (test code = BUN) 13 7-22 [facility]2020-11-08 07:43:00 Test Item Value Reference Range Interpretation Comments Creatinine Lvl (test code = Creatinine 0.97 0.50-1.40 Lvl) [facility]2020-11-08 07:43:00 Test Item Value Reference Range Interpretation Comments Sodium Lvl (test code = Sodium Lvl) 140 135-145 [facility]2020-11-08 07:43:00 Test Item Value Reference Range Interpretation Comments Potassium Lvl (test code = Potassium 3.7 3.5-5.1 Lvl) [facility]2020-11-08 07:43:00 Test Item Value Reference Range Interpretation Comments Chloride Lvl (test code = Chloride Lvl) 108 95-109 [facility]2020-11-08 07:43:00 Test Item Value Reference Range Interpretation Comments CO2 (test code = CO2) 28 24-32 [facility]2020-11-08 07:43:00 Test Item Value Reference Range Interpretation Comments Calcium Lvl (test code = Calcium Lvl) 8.7 8.5-10.5 [facility]2020-11-08 07:43:00 Test Item Value Reference Range Interpretation Comments AGAP (test code = AGAP) 7.7 10.0-20.0 [facility]2020-11-08 07:43:00 Test Item Value Reference Range Interpretation Comments eGFR (test code = eGFR) 91 [facility] AustinEbprhuqSPYTXGIHXPOXJ4369-88-92 07:43:00 Test Item Value Reference Range Interpretation Comments hCG Tot (test code = hCG Tot) 3554 [facility] HospitalGdgzslrCWOPPOSSLU7648-52-94 07:43:00 Test Item Value Reference Range Interpretation Comments WBC (test code = WBC) 7.3 3.7-10.4 [facility] HospitalJntkzuyABXGXEWEKV1274-80-54 07:43:00 Test Item Value Reference Range Interpretation Comments RBC (test code = RBC) 4.01 4.20-5.40 [facility] HospitalAadzhtaIMNAAXLGJN8805-89-45 07:43:00 Test Item Value Reference Range Interpretation Comments Hgb (test code = Hgb) 11.8 12.0-16.0 [facility] HospitalVfhjhfpMNJOMEUIPJ7516-01-01 07:43:00 Test Item Value Reference Range Interpretation Comments Hct (test code = Hct) 35.7 36.0-48.0 [facility] HospitalFoeekkaCEPHFOHVEJ6073-38-62 07:43:00 Test Item Value Reference Range Interpretation Comments MCV (test code = MCV) 89.2 80.0-98.0 [facility] HospitalPlnfzsnRHCRILJIIQ7348-05-33 07:43:00 Test Item Value Reference Range Interpretation Comments MCH (test code = MCH) 29.5 pg 27.0-31.0 [facility] HospitalKogkawmLGYLZGDRRQ9215-68-73 07:43:00 Test Item Value Reference Range Interpretation Comments MCHC (test code = MCHC) 33.0 32.0-36.0 [facility] HospitalAvwyvdxJEFCAFNARU5042-59-04 07:43:00 Test Item Value Reference Range Interpretation Comments RDW (test code = RDW) 13.9 11.5-14.5 [facility] HospitalIkqdwsjECYXGZBUGB3533-73-03 07:43:00 Test Item Value Reference Range Interpretation Comments Platelet (test code = Platelet) 229 133-450 [facility] HospitalChewlvpVFPTIBYPLI6451-91-49 07:43:00 Test Item Value Reference Range Interpretation Comments MPV (test code = MPV) 7.9 7.4-10.4 [facility] HospitalQeuarwxVMEVVKKFWT1332-34-30 07:43:00 Test Item Value Reference Range Interpretation Comments Segs (test code = Segs) 52.6 45.0-75.0 [facility] HospitalPwfnwsaZGHDEFHGJN8627-60-88 07:43:00 Test Item Value Reference Range Interpretation Comments Lymphocytes (test code = Lymphocytes) 36.9 20.0-40.0 [facility] HospitalXspptwuHGLPMOZJZO3953-00-62 07:43:00 Test Item Value Reference Range Interpretation Comments Monocytes (test code = Monocytes) 7.7 2.0-12.0 [place] 493090-11-08 07:43:00 Test Item Value Reference Range Interpretation Comments Eosinophils (test code = 2.3 See_Comment [A utomated message] The Eosinophils) system which ge nerated this result tra nsmitted reference range : <=4.0. The reference r drake was not used to int erpret this result as normal/abnormal . [facility] AustinBphixwcLSRZSLKHYW8238-88-88 07:43:00 Test Item Value Reference Range Interpretation Comments Basophils (test code = 0.5 See_Comment [Aut omated message] The Basophils) system which ge nerated this result tra nsmitted reference range : <=1.0. The reference r drake was not used to int erpret this result as normal/abnormal . [facility] HospitalGnycselCMQSJXNKNM0209-78-12 07:43:00 Test Item Value Reference Range Interpretation Comments Neutrophils # (test code = Neutrophils 3.8 1.5-8.1 #) [facility] HospitalCvadzzdOFEVNGJXGB9457-39-23 07:43:00 Test Item Value Reference Range Interpretation Comments Lymphocytes # (test code = Lymphocytes 2.7 1.0-5.5 #) [facility] HospitalOaxofhvWFFOJOVQJV0811-07-89 07:43:00 Test Item Value Reference Range Interpretation Comments Monocytes # (test code 0.6 See_Comment [Aut omated message] The = Monocytes #) system which generated this result tra nsmitted reference range : <=0.8. The reference r drake was not used to int erpret this result as normal/abnormal . [facility] HospitalAcxhxjbALCWRWHXLK0835-76-86 07:43:00 Test Item Value Reference Range Interpretation Comments Eosinophils # (test code 0.2 See_Comment [A utomated message] The = Eosinophils #) system whic h generated this result tra nsmitted reference range : <=0.5. The reference r drake was not used to int erpret this result as normal/abnormal . [facility] [id number] 07:43:00 Test Item Value Reference Range Interpretation Comments ABO/Rh (test code = ABO/Rh) A POS [facility] [employer] [id number] 07:43:00 Test Item Value Reference Range Interpretation Comments Glucose Lvl (test code = Glucose Lvl) 83 70-99 [facility] [id number] 07:43:00 Test Item Value Reference Range Interpretation Comments BUN (test code = BUN) 13 7-22 [facility] [id number] 07:43:00 Test Item Value Reference Range Interpretation Comments Creatinine Lvl (test code = Creatinine 0.97 0.50-1.40 Lvl) [facility]2020-11-08 07:43:00 Test Item Value Reference Range Interpretation Comments Sodium Lvl (test code = Sodium Lvl) 140 135-145 [facility]2020-11-08 07:43:00 Test Item Value Reference Range Interpretation Comments Potassium Lvl (test code = Potassium 3.7 3.5-5.1 Lvl) [facility]2020-11-08 07:43:00 Test Item Value Reference Range Interpretation Comments Chloride Lvl (test code = Chloride Lvl) 108 95-109 [facility]2020-11-08 07:43:00 Test Item Value Reference Range Interpretation Comments CO2 (test code = CO2) 28 24-32 [place] 748910-11-08 07:43:00 Test Item Value Reference Range Interpretation Comments Calcium Lvl (test code = Calcium Lvl) 8.7 8.5-10.5 [place] 748910-11-08 07:43:00 Test Item Value Reference Range Interpretation Comments AGAP (test code = AGAP) 7.7 10.0-20.0 [facility]2020-11-08 07:43:00 Test Item Value Reference Range Interpretation Comments eGFR (test code = eGFR) 91 [facility] HospitalUhzziqcXIQKQFMZZNJFA5244-03-90 07:43:00 Test Item Value Reference Range Interpretation Comments hCG Tot (test code = hCG Tot) 3554 [facility] HospitalFaociawBTLGZTGOAF5322-19-03 07:43:00 Test Item Value Reference Range Interpretation Comments WBC (test code = WBC) 7.3 3.7-10.4 [facility] HospitalDjzfdoqQMTXEKFDEG8226-83-03 07:43:00 Test Item Value Reference Range Interpretation Comments RBC (test code = RBC) 4.01 4.20-5.40 [place] 493090-11-08 07:43:00 Test Item Value Reference Range Interpretation Comments Hgb (test code = Hgb) 11.8 12.0-16.0 [place] [address]-11-08 07:43:00 Test Item Value Reference Range Interpretation Comments Hct (test code = Hct) 35.7 36.0-48.0 [place] 493090-11-08 07:43:00 Test Item Value Reference Range Interpretation Comments MCV (test code = MCV) 89.2 80.0-98.0 [place] 493090-11-08 07:43:00 Test Item Value Reference Range Interpretation Comments MCH (test code = MCH) 29.5 pg 27.0-31.0 [place] 493090-11-08 07:43:00 Test Item Value Reference Range Interpretation Comments MCHC (test code = MCHC) 33.0 32.0-36.0 [place] 493090-11-08 07:43:00 Test Item Value Reference Range Interpretation Comments RDW (test code = RDW) 13.9 11.5-14.5 [place] 493090-11-08 07:43:00 Test Item Value Reference Range Interpretation Comments Platelet (test code = Platelet) 229 133-450 [facility] HospitalOyfhoweHOEHDMYSQH5306-67-92 07:43:00 Test Item Value Reference Range Interpretation Comments MPV (test code = MPV) 7.9 7.4-10.4 [place] 493090-11-08 07:43:00 Test Item Value Reference Range Interpretation Comments Segs (test code = Segs) 52.6 45.0-75.0 [place] 493090-11-08 07:43:00 Test Item Value Reference Range Interpretation Comments Lymphocytes (test code = Lymphocytes) 36.9 20.0-40.0 [place] 493090-11-08 07:43:00 Test Item Value Reference Range Interpretation Comments Monocytes (test code = Monocytes) 7.7 2.0-12.0 [place] 493090-11-08 07:43:00 Test Item Value Reference Range Interpretation Comments Eosinophils (test code = 2.3 See_Comment [A utomated message] The Eosinophils) system which ge nerated this result tra nsmitted reference range : <=4.0. The reference r drake was not used to int erpret this result as normal/abnormal . [place] 493090-11-08 07:43:00 Test Item Value Reference Range Interpretation Comments Basophils (test code = 0.5 See_Comment [Aut omated message] The Basophils) system which ge nerated this result tra nsmitted reference range : <=1.0. The reference r drake was not used to int erpret this result as normal/abnormal . [facility] HospitalJqhvuxaOZRGKSBXDI4780-38-57 07:43:00 Test Item Value Reference Range Interpretation Comments Neutrophils # (test code = Neutrophils 3.8 1.5-8.1 #) [facility] HospitalXatcpxrFGDJXMTHCC4916-99-27 07:43:00 Test Item Value Reference Range Interpretation Comments Lymphocytes # (test code = Lymphocytes 2.7 1.0-5.5 #) [facility] HospitalNudnnzeORGJNKEHLH2360-38-00 07:43:00 Test Item Value Reference Range Interpretation Comments Monocytes # (test code 0.6 See_Comment [Aut omated message] The = Monocytes #) system which generated this result tra nsmitted reference range : <=0.8. The reference r drake was not used to int erpret this result as normal/abnormal . [facility] HospitalDuckzqhUIGCCGHPYL8868-36-80 07:43:00 Test Item Value Reference Range Interpretation Comments Eosinophils # (test code 0.2 See_Comment [A utomated message] The = Eosinophils #) system whic h generated this result tra nsmitted reference range : <=0.5. The reference r drake was not used to int erpret this result as normal/abnormal . [facility] [id number] 07:43:00 Test Item Value Reference Range Interpretation Comments ABO/Rh (test code = ABO/Rh) A POS [facility] [id number] 07:43:00 Test Item Value Reference Range Interpretation Comments Glucose Lvl (test code = Glucose Lvl) 83 70-99 [facility] [id number] 07:43:00 Test Item Value Reference Range Interpretation Comments BUN (test code = BUN) 13 7-22 [facility] [id number] 07:43:00 Test Item Value Reference Range Interpretation Comments Creatinine Lvl (test code = Creatinine 0.97 0.50-1.40 Lvl) [facility] [id number] 07:43:00 Test Item Value Reference Range Interpretation Comments Sodium Lvl (test code = Sodium Lvl) 140 135-145 [facility] [id number] 07:43:00 Test Item Value Reference Range Interpretation Comments Potassium Lvl (test code = Potassium 3.7 3.5-5.1 Lvl) [facility]Former[facility]FYQDV0864-28-83 07:43:00 Test Item Value Reference Range Interpretation Comments Chloride Lvl (test code = Chloride Lvl) 108 95-109 [facility]2020-11-08 07:43:00 Test Item Value Reference Range Interpretation Comments CO2 (test code = CO2) 28 24-32 [place] 748910-11-08 07:43:00 Test Item Value Reference Range Interpretation Comments Calcium Lvl (test code = Calcium Lvl) 8.7 8.5-10.5 [facility]2020-11-08 07:43:00 Test Item Value Reference Range Interpretation Comments AGAP (test code = AGAP) 7.7 10.0-20.0 [facility]2020-11-08 07:43:00 Test Item Value Reference Range Interpretation Comments eGFR (test code = eGFR) 91 [place] 15168020-11-08 07:43:00 Test Item Value Reference Range Interpretation Comments hCG Tot (test code = hCG Tot) 3554 [facility] HospitalWaxyjsnDITNSFOABY7055-55-93 07:43:00 Test Item Value Reference Range Interpretation Comments WBC (test code = WBC) 7.3 3.7-10.4 [facility] HospitalWoafocrMYTCGYLLON5682-63-65 07:43:00 Test Item Value Reference Range Interpretation Comments RBC (test code = RBC) 4.01 4.20-5.40 [facility] HospitalJsevabxLWALLJOJEQ7339-89-54 07:43:00 Test Item Value Reference Range Interpretation Comments Hgb (test code = Hgb) 11.8 12.0-16.0 [place] 493090-11-08 07:43:00 Test Item Value Reference Range Interpretation Comments Hct (test code = Hct) 35.7 36.0-48.0 [place] 493090-11-08 07:43:00 Test Item Value Reference Range Interpretation Comments MCV (test code = MCV) 89.2 80.0-98.0 [place] 493090-11-08 07:43:00 Test Item Value Reference Range Interpretation Comments MCH (test code = MCH) 29.5 pg 27.0-31.0 [place] 493090-11-08 07:43:00 Test Item Value Reference Range Interpretation Comments MCHC (test code = MCHC) 33.0 32.0-36.0 [place] 493090-11-08 07:43:00 Test Item Value Reference Range Interpretation Comments RDW (test code = RDW) 13.9 11.5-14.5 [place] 493090-11-08 07:43:00 Test Item Value Reference Range Interpretation Comments Platelet (test code = Platelet) 229 133-450 [facility] HospitalIyntaklYTYFJCMUCV6983-67-53 07:43:00 Test Item Value Reference Range Interpretation Comments MPV (test code = MPV) 7.9 7.4-10.4 [place] [address]-11-08 07:43:00 Test Item Value Reference Range Interpretation Comments Segs (test code = Segs) 52.6 45.0-75.0 [place] 493090-11-08 07:43:00 Test Item Value Reference Range Interpretation Comments Lymphocytes (test code = Lymphocytes) 36.9 20.0-40.0 [place] 493090-11-08 07:43:00 Test Item Value Reference Range Interpretation Comments Monocytes (test code = Monocytes) 7.7 2.0-12.0 [facility] HospitalKlrvlcoURNUDYVVPG8532-63-23 07:43:00 Test Item Value Reference Range Interpretation Comments Eosinophils (test code = 2.3 See_Comment [A utomated message] The Eosinophils) system which ge nerated this result tra nsmitted reference range : <=4.0. The reference r drake was not used to int erpret this result as normal/abnormal . [facility] HospitalDlgkyeyQIVUYEQFGL8463-14-03 07:43:00 Test Item Value Reference Range Interpretation Comments Basophils (test code = 0.5 See_Comment [Aut omated message] The Basophils) system which ge nerated this result tra nsmitted reference range : <=1.0. The reference r drake was not used to int erpret this result as normal/abnormal . [facility] HospitalAjaaixyBMQFXOVNSF0523-17-60 07:43:00 Test Item Value Reference Range Interpretation Comments Neutrophils # (test code = Neutrophils 3.8 1.5-8.1 #) [facility] HospitalVwevlkdGYPITYZZNS7791-71-67 07:43:00 Test Item Value Reference Range Interpretation Comments Lymphocytes # (test code = Lymphocytes 2.7 1.0-5.5 #) [place] 493090-11-08 07:43:00 Test Item Value Reference Range Interpretation Comments Monocytes # (test code 0.6 See_Comment [Aut omated message] The = Monocytes #) system which generated this result tra nsmitted reference range : <=0.8. The reference r drake was not used to int erpret this result as normal/abnormal . [facility] HospitalBkygmrsJKWBCSTYYU0840-56-49 07:43:00 Test Item Value Reference Range Interpretation Comments Eosinophils # (test code 0.2 See_Comment [A utomated message] The = Eosinophils #) system whic h generated this result tra nsmitted reference range : <=0.5. The reference r drake was not used to int erpret this result as normal/abnormal . [facility] [id number] 07:43:00 Test Item Value Reference Range Interpretation Comments ABO/Rh (test code = ABO/Rh) A POS [facility] [id number] 07:43:00 Test Item Value Reference Range Interpretation Comments Glucose Lvl (test code = Glucose Lvl) 83 70-99 [facility] [id number] 07:43:00 Test Item Value Reference Range Interpretation Comments BUN (test code = BUN) 13 7-22 [facility] [id number] 07:43:00 Test Item Value Reference Range Interpretation Comments Creatinine Lvl (test code = Creatinine 0.97 0.50-1.40 Lvl) [facility] [id number] 07:43:00 Test Item Value Reference Range Interpretation Comments Sodium Lvl (test code = Sodium Lvl) 140 135-145 [facility] [id number] 07:43:00 Test Item Value Reference Range Interpretation Comments Potassium Lvl (test code = Potassium 3.7 3.5-5.1 Lvl) [facility] [employer] [id number] 07:43:00 Test Item Value Reference Range Interpretation Comments Chloride Lvl (test code = Chloride Lvl) 108 95-109 [facility] [employer] [id number] 07:43:00 Test Item Value Reference Range Interpretation Comments CO2 (test code = CO2) 28 24-32 [facility] [id number] 07:43:00 Test Item Value Reference Range Interpretation Comments Calcium Lvl (test code = Calcium Lvl) 8.7 8.5-10.5 [facility] [employer] [id number] 07:43:00 Test Item Value Reference Range Interpretation Comments AGAP (test code = AGAP) 7.7 10.0-20.0 [facility] [employer] [id number] 07:43:00 Test Item Value Reference Range Interpretation Comments eGFR (test code = eGFR) 91 [facility]EmcaratDGQUYRJFTCWRJ8429-70-57 07:43:00 Test Item Value Reference Range Interpretation Comments hCG Tot (test code = hCG Tot) 3554 [facility] HospitalCzkhipmPCQFESCWDJ6732-15-97 07:43:00 Test Item Value Reference Range Interpretation Comments WBC (test code = WBC) 7.3 3.7-10.4 [facility] HospitalOjvzbsdICUGVTLEEF3127-05-84 07:43:00 Test Item Value Reference Range Interpretation Comments RBC (test code = RBC) 4.01 4.20-5.40 [facility] HospitalEzcneqqNKBPCKCDNQ8643-28-48 07:43:00 Test Item Value Reference Range Interpretation Comments Hgb (test code = Hgb) 11.8 12.0-16.0 [facility] HospitalAbwxtcbWRODJZBCCU9158-75-16 07:43:00 Test Item Value Reference Range Interpretation Comments Hct (test code = Hct) 35.7 36.0-48.0 [facility] HospitalKoweexzAZHUFATJBN5318-93-15 07:43:00 Test Item Value Reference Range Interpretation Comments MCV (test code = MCV) 89.2 80.0-98.0 [facility] HospitalJuamsxwNCFODJRYWC7850-86-66 07:43:00 Test Item Value Reference Range Interpretation Comments MCH (test code = MCH) 29.5 pg 27.0-31.0 [facility] KAWDKOB0506-49-45 07:43:00 Test Item Value Reference Range Interpretation Comments ABO/Rh (test code = ABO/Rh) A POS [facility] HospitalSebqmqoVLCRHQHJUJ0303-13-56 07:43:00 Test Item Value Reference Range Interpretation Comments MCHC (test code = MCHC) 33.0 32.0-36.0 [facility] HospitalTagbinuXYFVKKMYDI5372-43-54 07:43:00 Test Item Value Reference Range Interpretation Comments RDW (test code = RDW) 13.9 11.5-14.5 [facility] HospitalSrzltkmDMTTSFRNDI2884-28-84 07:43:00 Test Item Value Reference Range Interpretation Comments Platelet (test code = Platelet) 229 133-450 [facility] HospitalRhixfysKQHIAEGRXP0216-60-83 07:43:00 Test Item Value Reference Range Interpretation Comments MPV (test code = MPV) 7.9 7.4-10.4 [facility] HospitalQlhmvxnDBIWMHANFN6621-31-22 07:43:00 Test Item Value Reference Range Interpretation Comments Segs (test code = Segs) 52.6 45.0-75.0 [facility] HospitalTwhdbdzPRDMLXNEYX6772-42-46 07:43:00 Test Item Value Reference Range Interpretation Comments Lymphocytes (test code = Lymphocytes) 36.9 20.0-40.0 [facility] HospitalZnxqupbUXHYLLIWVC2506-19-65 07:43:00 Test Item Value Reference Range Interpretation Comments Monocytes (test code = Monocytes) 7.7 2.0-12.0 [facility] HospitalBedentpDNSIRXBSJQ0556-40-41 07:43:00 Test Item Value Reference Range Interpretation Comments Eosinophils (test code = 2.3 See_Comment [A utomated message] The Eosinophils) system which ge nerated this result tra nsmitted reference range : <=4.0. The reference r drake was not used to int erpret this result as normal/abnormal . [facility] HospitalZilyyzhCCOCLWBKDA4375-77-51 07:43:00 Test Item Value Reference Range Interpretation Comments Basophils (test code = 0.5 See_Comment [Aut omated message] The Basophils) system which ge nerated this result tra nsmitted reference range : <=1.0. The reference r drake was not used to int erpret this result as normal/abnormal . [facility] HospitalZrhifinLBQHYSYBQY7542-51-84 07:43:00 Test Item Value Reference Range Interpretation Comments Neutrophils # (test code = Neutrophils 3.8 1.5-8.1 #) [facility]2020-11-08 07:43:00 Test Item Value Reference Range Interpretation Comments Glucose Lvl (test code = Glucose Lvl) 83 70-99 [facility] HospitalWhswtxcUBAZTCUICV4831-87-20 07:43:00 Test Item Value Reference Range Interpretation Comments Lymphocytes # (test code = Lymphocytes 2.7 1.0-5.5 #) [facility] HospitalAspfluxLSIOWZYVYA3308-74-68 07:43:00 Test Item Value Reference Range Interpretation Comments Monocytes # (test code 0.6 See_Comment [Aut omated message] The = Monocytes #) system which generated this result tra nsmitted reference range : <=0.8. The reference r drake was not used to int erpret this result as normal/abnormal . [facility] HospitalFjrgpkvSSYMHFZIRL5480-24-58 07:43:00 Test Item Value Reference Range Interpretation Comments Eosinophils # (test code 0.2 See_Comment [A utomated message] The = Eosinophils #) system whic h generated this result tra nsmitted reference range : <=0.5. The reference r drake was not used to int erpret this result as normal/abnormal . [facility] [id number] 07:43:00 Test Item Value Reference Range Interpretation Comments BUN (test code = BUN) 13 7-22 [facility] [id number] 07:43:00 Test Item Value Reference Range Interpretation Comments Creatinine Lvl (test code = Creatinine 0.97 0.50-1.40 Lvl) [facility] [id number] 07:43:00 Test Item Value Reference Range Interpretation Comments Sodium Lvl (test code = Sodium Lvl) 140 135-145 [facility] [id number] 07:43:00 Test Item Value Reference Range Interpretation Comments Potassium Lvl (test code = Potassium 3.7 3.5-5.1 Lvl) [facility] [id number] 07:43:00 Test Item Value Reference Range Interpretation Comments Chloride Lvl (test code = Chloride Lvl) 108 95-109 [facility] [id number] 07:43:00 Test Item Value Reference Range Interpretation Comments CO2 (test code = CO2) 28 24-32 [facility] [id number] 07:43:00 Test Item Value Reference Range Interpretation Comments Calcium Lvl (test code = Calcium Lvl) 8.7 8.5-10.5 [facility] [id number] 07:43:00 Test Item Value Reference Range Interpretation Comments AGAP (test code = AGAP) 7.7 10.0-20.0 [facility] [id number] 07:43:00 Test Item Value Reference Range Interpretation Comments eGFR (test code = eGFR) 91 [facility]ACMTFBOBPFNDC7227-25-50 07:43:00 Test Item Value Reference Range Interpretation Comments hCG Tot (test code = hCG Tot) 3554 [facility] HospitalVermwuiLQPJXNBFSH7937-83-17 07:43:00 Test Item Value Reference Range Interpretation Comments WBC (test code = WBC) 7.3 3.7-10.4 [facility] HospitalUyagasxOSCWMIQFFE9122-67-49 07:43:00 Test Item Value Reference Range Interpretation Comments RBC (test code = RBC) 4.01 4.20-5.40 [facility] HospitalGqdypivIVSGYTPRAW5339-06-83 07:43:00 Test Item Value Reference Range Interpretation Comments Hgb (test code = Hgb) 11.8 12.0-16.0 [facility] HospitalRzmefwsBZMXQMOUBS9715-26-99 07:43:00 Test Item Value Reference Range Interpretation Comments Hct (test code = Hct) 35.7 36.0-48.0 [facility] HospitalDvcnzshWJTNYKULAY9610-50-10 07:43:00 Test Item Value Reference Range Interpretation Comments MCV (test code = MCV) 89.2 80.0-98.0 [facility] HospitalEolzdgzWEYUGNJUCP3623-06-02 07:43:00 Test Item Value Reference Range Interpretation Comments MCH (test code = MCH) 29.5 pg 27.0-31.0 [facility] HospitalYnhhmvaCQAJDGMEAK2021-23-93 07:43:00 Test Item Value Reference Range Interpretation Comments MCHC (test code = MCHC) 33.0 32.0-36.0 [facility] HospitalNkkvpiwYJIJFNZQUI0266-98-61 07:43:00 Test Item Value Reference Range Interpretation Comments RDW (test code = RDW) 13.9 11.5-14.5 [facility] HospitalSvzratxYYNCLETQKW4144-75-65 07:43:00 Test Item Value Reference Range Interpretation Comments Platelet (test code = Platelet) 229 133-450 [facility] HospitalTsachrwSGNMKXXVCK5171-55-30 07:43:00 Test Item Value Reference Range Interpretation Comments MPV (test code = MPV) 7.9 7.4-10.4 [facility] HospitalSnhslcgPAFYTXVAIA7760-45-56 07:43:00 Test Item Value Reference Range Interpretation Comments Segs (test code = Segs) 52.6 45.0-75.0 [facility] HospitalSzkuvbaMOIFKBESIQ1942-47-69 07:43:00 Test Item Value Reference Range Interpretation Comments Lymphocytes (test code = Lymphocytes) 36.9 20.0-40.0 [facility] HospitalKjjlahqUFLRNLKDSH3236-88-96 07:43:00 Test Item Value Reference Range Interpretation Comments Monocytes (test code = Monocytes) 7.7 2.0-12.0 [facility] HospitalXgqeekfLGVZVGXGKP0757-38-53 07:43:00 Test Item Value Reference Range Interpretation Comments Eosinophils (test code = 2.3 See_Comment [A utomated message] The Eosinophils) system which ge nerated this result tra nsmitted reference range : <=4.0. The reference r drake was not used to int erpret this result as normal/abnormal . [facility] HospitalQgdwiyxLCNNZAOKZU6284-23-80 07:43:00 Test Item Value Reference Range Interpretation Comments Basophils (test code = 0.5 See_Comment [Aut omated message] The Basophils) system which ge nerated this result tra nsmitted reference range : <=1.0. The reference r drake was not used to int erpret this result as normal/abnormal . [facility] HospitalAwbkztlPPCKHWCAPQ3528-87-71 07:43:00 Test Item Value Reference Range Interpretation Comments Neutrophils # (test code = Neutrophils 3.8 1.5-8.1 #) [facility] HospitalVyqifqzKHYGOODAMK2683-84-31 07:43:00 Test Item Value Reference Range Interpretation Comments Lymphocytes # (test code = Lymphocytes 2.7 1.0-5.5 #) [facility] HospitalZzsmqrkYBTGOMWKQJ7095-38-10 07:43:00 Test Item Value Reference Range Interpretation Comments Monocytes # (test code 0.6 See_Comment [Aut omated message] The = Monocytes #) system which generated this result tra nsmitted reference range : <=0.8. The reference r drake was not used to int erpret this result as normal/abnormal . [facility] HospitalHcsjklkARAAUYSRVU7061-46-25 07:43:00 Test Item Value Reference Range Interpretation Comments Eosinophils # (test code 0.2 See_Comment [A utomated message] The = Eosinophils #) system whic h generated this result tra nsmitted reference range : <=0.5. The reference r drake was not used to int erpret this result as normal/abnormal . [facility]WePayO[facility] B[facility] [id number] 07:43:00 Test Item Value Reference Range Interpretation Comments ABO/Rh (test code = ABO/Rh) A POS [facility] AustinCHEM [id number] 07:43:00 Test Item Value Reference Range Interpretation Comments Glucose Lvl (test code = Glucose Lvl) 83 70-99 [facility] [id number] 07:43:00 Test Item Value Reference Range Interpretation Comments ABO/Rh (test code = ABO/Rh) A POS [facility] [id number] 07:43:00 Test Item Value Reference Range Interpretation Comments Glucose Lvl (test code = Glucose Lvl) 83 70-99 [facility] [id number] 07:43:00 Test Item Value Reference Range Interpretation Comments BUN (test code = BUN) 13 7-22 [facility] [id number] 07:43:00 Test Item Value Reference Range Interpretation Comments Creatinine Lvl (test code = Creatinine 0.97 0.50-1.40 Lvl) [facility] [id number] 07:43:00 Test Item Value Reference Range Interpretation Comments Sodium Lvl (test code = Sodium Lvl) 140 135-145 [facility] [id number] 07:43:00 Test Item Value Reference Range Interpretation Comments Potassium Lvl (test code = Potassium 3.7 3.5-5.1 Lvl) [facility] [id number] 07:43:00 Test Item Value Reference Range Interpretation Comments Chloride Lvl (test code = Chloride Lvl) 108 95-109 [facility] [employer] [id number] 07:43:00 Test Item Value Reference Range Interpretation Comments CO2 (test code = CO2) 28 24-32 [facility] [id number] 07:43:00 Test Item Value Reference Range Interpretation Comments Calcium Lvl (test code = Calcium Lvl) 8.7 8.5-10.5 [facility] [id number] 07:43:00 Test Item Value Reference Range Interpretation Comments AGAP (test code = AGAP) 7.7 10.0-20.0 [facility] [id number] 07:43:00 Test Item Value Reference Range Interpretation Comments eGFR (test code = eGFR) 91 [facility] AustinCpuqyrpIBDEEEKWTUOOH1197-06-78 07:43:00 Test Item Value Reference Range Interpretation Comments hCG Tot (test code = hCG Tot) 3554 [facility]XvgjvcsEDVKSGKQHQ6216-46-10 07:43:00 Test Item Value Reference Range Interpretation Comments WBC (test code = WBC) 7.3 3.7-10.4 [facility] Ho[id number] 07:43:00 Test Item Value Reference Range Interpretation Comments RBC (test code = RBC) 4.01 4.20-5.40 [facility] HospitalSzhbtiqJUMWJHGGHK1242-44-34 07:43:00 Test Item Value Reference Range Interpretation Comments Hgb (test code = Hgb) 11.8 12.0-16.0 [facility] HospitalVilaueiHGORBMVSGO1054-85-86 07:43:00 Test Item Value Reference Range Interpretation Comments Hct (test code = Hct) 35.7 36.0-48.0 [facility] HospitalRcilrtbEZSEAHTTYC5881-61-35 07:43:00 Test Item Value Reference Range Interpretation Comments MCV (test code = MCV) 89.2 80.0-98.0 [facility] HospitalSenggquJXCISCVDIB1265-45-13 07:43:00 Test Item Value Reference Range Interpretation Comments MCH (test code = MCH) 29.5 pg 27.0-31.0 [facility] HospitalXdpozzuNEPPOPVPHK7097-18-31 07:43:00 Test Item Value Reference Range Interpretation Comments MCHC (test code = MCHC) 33.0 32.0-36.0 [facility] HospitalQhkeyqeJUORYRWRUJ5850-88-91 07:43:00 Test Item Value Reference Range Interpretation Comments RDW (test code = RDW) 13.9 11.5-14.5 [facility] HospitalHusanreMMOKZAHEDN2658-42-35 07:43:00 Test Item Value Reference Range Interpretation Comments Platelet (test code = Platelet) 229 133-450 [facility] HospitalNevbbyyDXNSWHTUFC5191-61-56 07:43:00 Test Item Value Reference Range Interpretation Comments MPV (test code = MPV) 7.9 7.4-10.4 [facility] HospitalThcfvwuAATALZDLFZ7724-96-05 07:43:00 Test Item Value Reference Range Interpretation Comments Segs (test code = Segs) 52.6 45.0-75.0 [facility] HospitalNjlpoqjWRJFVLWBMF2385-68-90 07:43:00 Test Item Value Reference Range Interpretation Comments Lymphocytes (test code = Lymphocytes) 36.9 20.0-40.0 [facility] HospitalIyqnuwiQJZZCLVXIM4350-34-92 07:43:00 Test Item Value Reference Range Interpretation Comments Monocytes (test code = Monocytes) 7.7 2.0-12.0 [facility] HospitalKvjlzpnAVRFFDTEEO9628-38-56 07:43:00 Test Item Value Reference Range Interpretation Comments Eosinophils (test code = 2.3 See_Comment [A utomated message] The Eosinophils) system which ge nerated this result tra nsmitted reference range : <=4.0. The reference r drake was not used to int erpret this result as normal/abnormal . [facility] HospitalAgngsoaBNGQOZLXWA9783-82-21 07:43:00 Test Item Value Reference Range Interpretation Comments Basophils (test code = 0.5 See_Comment [Aut omated message] The Basophils) system which ge nerated this result tra nsmitted reference range : <=1.0. The reference r drake was not used to int erpret this result as normal/abnormal . [facility] HospitalJymyyixFDPFCDATAQ5453-14-50 07:43:00 Test Item Value Reference Range Interpretation Comments Neutrophils # (test code = Neutrophils 3.8 1.5-8.1 #) [facility] HospitalGyyfwnhQWHRBEMCAF0519-05-07 07:43:00 Test Item Value Reference Range Interpretation Comments Lymphocytes # (test code = Lymphocytes 2.7 1.0-5.5 #) [facility] HospitalPejdejkWBAYITRCAU2621-65-13 07:43:00 Test Item Value Reference Range Interpretation Comments Monocytes # (test code 0.6 See_Comment [Aut omated message] The = Monocytes #) system which generated this result tra nsmitted reference range : <=0.8. The reference r drake was not used to int erpret this result as normal/abnormal . [facility] HospitalYwtdabcONYWHFSCTG2138-66-93 07:43:00 Test Item Value Reference Range Interpretation Comments Eosinophils # (test code 0.2 See_Comment [A utomated message] The = Eosinophils #) system whic h generated this result tra nsmitted reference range : <=0.5. The reference r drake was not used to int erpret this result as normal/abnormal . Sudhakar Kaur Notes Date/Time Note Provider Source 2022-04-26 08:27:00-00:00 [id number] [facility] [address], [place] [address] PATIENT NAME: JACK AGUIRRE ADMIT DATE: 04/24/22 ACCOUNT NO: [id number] ROOM NO: [facility] AGE: 31 SEX: F ADMITTING PHYSICIAN: Reagan Byrd MD ATTENDING PHYSICIAN: Reagan Byrd MD ADMISSION DATE: 04/24/2022 09:53:00 DISCHARGE DATE: ADMISSION DIAGNOSES: A 38-week intrauterine preg cheri, ruptured membranes. DISCHARGE DIAGNOSES: A 38-week intrauterine preg cheri, ruptured membranes. OPERATION: Vaginal delivery. HISTORY: The patient is a 31-year-old , AB 3, admitted at 38-1/7 weeks with premature rupture of membranes. She receive d Pitocin and ultimately delivered vaginally and did well post-delivery a nd is discharged home the following day with her baby. She is on pelvic re st, regular diet and will follow up in the office in 4-6 weeks' time. Dictated By: Reagan Byrd MD Date Dictated: 04/26/2022 08:27:19 Date Transcribed: 04/26/2022 23:28:33 MAXX/JILLIAN/WENDY Receipt ID: [id number] Authenticated by Reagan Byrd MD On 04/29/19 08:52:03 PM at 0852 PATIENT NAME: JACK AGUIRRE 7723 2022-04-26 07:55:00-00:00 [facility]) OB Postpart Progr Note REPORT#:[id number] REPORT STATUS: Signed DATE:04/26/22 TIME: 754 PATIENT: JACK AGUIRRE UNIT #: [id number] ROOM/BED: [facility]-A : 89 AGE: 31 SEX: F ATTEND: Skylar Byrd MD ADM AUTHOR: Reagan Byrd MD * ALL edits or amendments must be made on the [employer]/computer document * Subjective Subjective Admission EGA: Weeks: 38 Days: 1 Patient reports: Patient reports: Yes: pain management effective, tolerating po w ell, voiding well. Objective Physical Exam Lungs: clear to auscultation, no rales, no rhonc hi, unlabored breathing Neuro: Exam: alert, oriented x3, normal speech , normal gait, CNII-XII grossly intact , reflexes equal bilat Uterus: involution appropriate Lower extremities: Edema: trace Augie's sign: negative Calf tenderness: negative Diagnosis, Assessment Plan Diagnosis, Assessment Plan Assessment: nml progress Plan: discharge today Electronically Signed by Reagan Byrd MD on 0 04/26/22 at 0756 RPT #:[id number] END OF REPORT 2022-04-25 13:09:00-00:00 [facility] ([facility]) OB Delivery Note REPORT#:[id number] REPORT STATUS: Signed DATE:04/25/22 TIME: 1309 PATIENT: JACK AGUIRRE UNIT #: [id number] ROOM/BED: [address] : [address] AGE: 31 SEX: F ATTEND: Skylar Byrd MD ADM AUTHOR: Reagan Byrd MD * ALL edits or amendments must be made on the [employer]/computer document * OB Delivery Pre-delivery Admission EGA: Weeks: 38 Days: 1 Blood Loss/Details Blood loss at delivery: 250 cc Baby A Information Baby A information status: live born Wt of baby (lbs/oz): 7 lbs 3 ounces 1 minute: 8 5 minutes: 9 Vaginal Delivery Vaginal Delivery Vaginal delivery: Labor: augmented Amniotic fluid: clear Anesthesia type: local Episiotomy: none Note dictated: Yes Electronically Signed by Reagan Byrd MD on 0 04/25/22 at 1310 RPT #:[id number] END OF REPORT 2022-04-25 13:09:00-00:00 [id number] [facility] [address], [place] [address] PATIENT NAME: JACK AGUIRRE ADMIT DATE: 04/24/22 ACCOUNT NO: [id number] ROOM NO: [facility] AGE: 31 SEX: F ADMITTING PHYSICIAN: Reagan Byrd MD ATTENDING PHYSICIAN: Reagan Byrd MD OPERATION DATE: 04/25/2022 PREOPERATIVE DIAGNOSES: 1. A 38 and 1/7 weeks' intrauterine . 2. Premature rupture of the membranes. POSTOPERATIVE DIAGNOSES: 1. A 38 and 1/7 weeks' intrauterine . 2. Premature rupture of the membranes. OPERATION: Vaginal delivery. SURGEON: Reagan Byrd MD PROTECTION AGENT: ANESTHESIA: IV sedation. ESTIMATED BLOOD LOSS: 250 mL BRIEF HISTORY: The patient is a 31-year- old who presented to the hospital with premature rupture of membranes. She was given lo w dose Pitocin and made slow progress. The baby remained OP through the cours e of labor. She did have prolonged second stage with an OP position, but continued to make descent and when the baby rotated to OA, had rapid progressi on. There was a category 1-2 strip throughout the course of labor with clear amniotic fluid and negative GBS. PROCEDURE IN DETAIL: The head was delivered over the intact perineum. The mouth and nares were suctioned. There was no cor d around the neck. The shoulders were then easily delivered and the 8 a nd 9 Apgars, 7 pound 3 ounce baby delivered atraumatically. Dad cut the cord. There was a 3-vessel cord. Cord blood was collected for MD Franc galindo. The placenta delivered shortly thereafter spontaneo usly intact. There were no tears or lacerations and she did not require any suturing. She had stable vital signs and will be recovered in the labor and delivery suite prior to being transferred to the floor. Dictated By: Reagan Byrd MD Date Dictated: 04/25/2022 13:09:03 Date Transcribed: 04/25/2022 18:09:37 MAXX/RUDY PATIENT NAME: JACK AGUIRRE 723 Receipt ID: [id number] Authenticated by Regaan Byrd MD On 04/25/19 06:36:31 PM at 0636 PATIENT NAME: JACK AGUIRRE 723 2022-04-25 08:42:00-00:00 [facility] ([facility]) OB Intrapart Prog Note REPORT#:[id number] REPORT STATUS: Signed DATE:04/25/22 TIME: 0842 PATIENT: JACK AGUIRRE UNIT #: [id number] ROOM/BED: [address] : [address] AGE: 31 SEX: F ATTEND: Skylar Byrd MD ADM AUTHOR: Reagan Byrd MD * ALL edits or amendments must be made on the [employer]/computer document * Subjective Subjective Admission EGA: Weeks: 38 Days: 1 Objective Nursing Documentation Review Nursing data: The data set between the solid lines has been im ported from nursing documentation. Any exceptions have been noted be low under Provider comments. __ ROM date: 04/24/22 ROM time: 0700 __ Provider comments on imported nursing data: [] Objective Cervical/ exam: Dilatation (cm): 9 Effacement (%): 100 station: 0 presentation: cephalic FHR Evaluation Baby A: Baby A FHR category: category 1 Diagnosis, Assessment Plan Free Text A P: pit 6 milliunits head still high start pushing when complete at 0843 RPT #:[id number] END OF REPORT 2022-04-24 21:32:00-00:00 [facility] ([facility]) OB Intrapart Prog Note REPORT#:[id number] REPORT STATUS: Signed DATE:04/24/22 TIME: 2131 PATIENT: JACK AGUIRRE UNIT #: [id number] ROOM/BED: [address] : [address] AGE: 31 SEX: F ATTEND: Skylar Byrd MD ADM AUTHOR: Reagan Byrd MD * ALL edits or amendments must be made on the [employer] document * Objective Objective Cervical/ exam: Dilatation (cm): 4 Effacement (%): 50 station: - 3 presentation: cephalic FHR Evaluation Baby A: Baby A FHR category: category 1 Diagnosis, Assessment Plan Assessment: normal FHR pattern (unengaged vertex ) Plan: continue labor induction, patient at risk for csection she adamently wants to cvontinue pitocin augmentation Electronically Signed by Reagan Byrd MD on 0 04/24/22 at 2136 RPT #:[id number] END OF REPORT 2022-04-24 11:08:00-00:00 [facility] ([facility]) OB Admission / H P REPORT#:[id number] REPORT STATUS: Signed DATE:04/24/22 TIME: 1107 PATIENT: JACK AGUIRRE UNIT #: [id number] ROOM/BED: [facility] : 89 AGE: 31 SEX: F ATTEND: Skylar Byrd MD ADM AUTHOR: Reagan Byrd MD * ALL edits or amendments must be made on the [employer] document * OB History Chief complaint: suspected ruptured memb HPI: 38 weeks prom history: : 4 Abortus: 3 Living children: 0 Previous : none Current : Admission EGA (weeks) 38 Admission EGA (days) 1 Past History Smoking status for patients 13 years old or olde r: Never Smoker Allergies: Coded Allergies: metronidazole (From FLAGYL) (Intermediate, ITCHI NG 04/24/22) Objective General Notes: gbs negative meds pepsid Physical Exam HEENT: normocephalic w/o injury, pupils equal, p upils reactive to light, no apparent hearing diff, no lesions of mouth, no l esions of throat, no nasal septum deviation, no scleral icterus Cardiac: regular rate and rh ythm, no clinically sig murmur, no gallops, no rubs Lungs: clear to auscultation, no rales, no rhonc hi, unlabored breathing Neuro: Exam: alert, oriented x3, normal speech , normal gait, CNII-XII grossly intact , reflexes equal bilat Abdomen: gravid, soft, no abnormal tenderness, n o guarding, no rebound tenderness, normoactive bowel sounds Pelvic exam: Pelvis clinically adequate: yes Cervical/ exam: Dilatation (cm): 2 Effacement (%): 50 station: - 2 presentation: cephalic Membranes: Membranes: SROM Lower extremities: Edema: trace Augie's sign: negative Calf tenderness: negative Baby A: Baby A FHR category: category 1 Diagnosis, Assessment Plan Diagnosis, Assessment Plan Assessment/Impression: PROM 37-38 weeks, 6 days Plan: delivery Electronically Signed by Reagan Byrd MD on 0 04/24/22 at 1110 RPT #:[id number] END OF REPORT 2021-10-17 05:04:00-00:00 [facility] EMERGENCY PROVIDER REPORT REPORT#:[id number] REPORT STATUS: Signed DATE:10/17/21 TIME: 0504 PATIENT: JACK AGUIRRE UNIT #: [id number] ROOM/BED: AGE: 31 SEX: F PCP PHYS: Reagan Byrd MD SERVICE AUTHOR: Kisha Velez MD * ALL edits or amendments must be made on the [employer] document * HPI-Preg Under 20 Weeks General Initial Greet Date/Time 10/17/21 0153 Presentation Chief Complaint , vomiting, dehydration Hx Obtained From Patient Associated with Reports: Nausea, Vomiting. Denies: Blood in urin e, Dysuria, Fever, Hematuria, Rash, Urinary frequency, UTI symptoms, Vaginal b leeding, Vaginal blistering/ lesion, Vaginal discharge. Free Text HPI Notes Free Text HPI Notes 31yoF A3 at 12 wks repor ts she has been vomiting nonstop for 3 days. No pain or vaginal bleeding. Feels dehydrated and can't keep anything down. Has first appt with Dr Byrd this Fr i. Dr Raisa Ni confirmed she has an IUP with US. No fever, chills, URI sx or sick contacts. Review of Systems ROS Statements All systems rev neg except as marked. Focused Review of Systems Constitutional Denies: Chills, Fever, Lethargy. Eyes Denies: Eye pain bilat, Redness bilat, Visual lo ss bilat. Respiratory Denies: Cough, non-productive, Cough, productive , Shortness of breath. Cardiovascular Denies: Chest pain, Syncope. Female Denies: Dysuria, Flank pain, Pelvic pain. Musculoskeletal Denies: Back pain, Extremity pain. Hematologic Denies: Bleeding, Bruising. Skin Denies: Diaphoresis, Rash. Neurologic Denies: Change LOC, Dizziness, Focal weakness, H eadache, Numbness, Slurred speech. Past Medical History - Adult Stated Complaint 12WKS PREG, VOMITING, COLD SWEA TS, DEHYDRATION Allergies Coded Allergies: No Known Allergies (10/17/21) Calculated Suicide Risk (nurs) No risk Review of Nursing Notes Rev avail, and agree Smoking status for patients 13 years old or olde r: Never Smoker Physical Exam Vital Signs Vital Signs First Documented: Result Date Time Pulse Ox 99 10/17 0203 B/P 118/78 10/17 202 B/P Mean 91 10/173 O2 Delivery Room air 10/17 202 Temp 98.5 10/17 0203 Pulse 89 10/17 0203 Resp 16 10/173 Last Documented: Result Date Time Pulse Ox 99 10/17 05 B/P 136/74 10/17 510 B/P Mean 94 10/17 510 O2 Delivery Room air 10/17 510 Temp 98.3 10/17 05 Pulse 77 10/17 05 Resp 18 10/17 05 Review of Vital Signs Reviewed Focused PE General/Const General/Const Awake, Alert Distress/Hydration Distress mild, Dehydration moderate. Ears/Nose/Throat Ears/Nose/Throat Airway patent Mouth Mucous membranes dry. Resp/Chest Respiratory/Chest Breath sounds NL, Breath soun ds = bilat, No respiratory distress, No rales, No rhonchi, No wheezing Cardiovascular Cardiovascular Heart rate NL, Regular rhythm, H eart sounds NL, Peripheral circulation NL Abdomen/GI Abdomen/GI Soft, Non-tender, No guarding, No re bound MS Back Back Inspection NL, Non-tender, No CVA tenderne ss Genitourinary General Exam deferred Neurologic Neurologic Oriented X3, Speech NL, No motor def icits, No sensory deficits Interpretation Diagnostics Lab Results Interpretation Results Laboratory Tests 10/17/21211: [Embedded Image Not Available] Laboratory Tests: 10/18 211 Chemistry Sodium (135 - 145 mEq/L) 132 L Potassium (3.5 - 5.0 mEq/L) 3.8 Chloride (100 - 115 mEq/L) 101 Carbon Dioxide (22 - 31 mEq/L) 25 Anion Gap (10 - 20) 10.10 BUN (7 - 18 mg/dL) 14 Creatinine (0.5 - 1.0 mg/dL) 1.1 H Glomerular Filtr Rate (>60 ml/min) 64 Glucose (65 - 110 mg/dL) 116 H Calcium (8.4 - 10.2 mg/dL) 8.7 Total Bilirubin (0.2 - 1.0 mg/dL) 0.2 AST (15 - 37 units/L) 16 ALT (12 - 78 units/L) 33 Total Alk Phosphatase (46 - 116 units/L) 59 Total Protein (6.3 - 8.2 gm/dL) 7.5 Albumin (3.4 - 4.8 gm/dL) 3.1 L Hematology WBC (6.5 - 12.3 K/mm3) 7.6 RBC (3.51 - 4.69 M/mm3) 4.37 Hgb (10.1 - 13.8 g/dL) 12.9 Hct (32.5 - 41.8 %) 39.3 MCV (84.6 - 96.6 fL) 89.9 MCH (27.3 - 33.9 pg) 29.5 MCHC (32.0 - 34.2 gm/dL) 32.8 RDW (12.2 - 16.3 %) 13.5 Plt Count (134 - 363 K/mm3) 254 MPV (9.2 - 12.7 fL) 9.8 Neut % (Auto) (57.9 - 77.3 %) 66.6 Lymph % (Auto) (14.5 - 29.7 %) 25.5 Eaton % (Auto) (3.6 - 10.2 %) 6.6 Eos % (Auto) (0.0 - 3.0 %) 0.7 Baso % (Auto) (0.1 - 0.9 %) 0.3 Neut # (Auto) (K/mm3) 5.1 Lymph # (Auto) (K/mm3) 1.9 Eaton # (Auto) (K/mm3) 0.5 Eos # (Auto) (K/mm3) 0.05 Baso # (Auto) (K/mm3) 0.0 Serology SARS-CoV-2 Ag (Rapid) (NEGATIVE) NEGATIVE Urines Urine Color (YELLOW) YELLOW Urine Appearance (CLEAR) Slightly-Cloudy Urine pH (5 - 9) 5.0 Ur Specific [place] (1.001 - 1.035) 1.031 Urine Protein (NEG) NEGATIVE Urine Glucose (UA) (NEG) NEGATIVE Urine Ketones (NEG) NEGATIVE Urine Blood (NEG) NEG Urine Nitrite (NEG) NEG Urine Bilirubin (NEG) NEGATIVE Urine Urobilinogen (NEG mg/dL) NEGATIVE Ur Leukocyte Esterase (NEG) NEG Urine RBC (NONE SEEN #/hpf) 0-2 Urine WBC (NONE SEEN #/hpf) 0-2 Ur Epithelial Cells (RARE - FEW #/HPF) MODERATE H Urine Mucus (NONE SEEN) RARE Lab Imaging Statement Laboratory radiographic studies reviewed and con sidered in the medical decision-making. Point of Care Testing Pulse Oximetry Pulse Ox % 99 On: Room air Interpretation Interpreted by me, Pulse oximetr y normal Time 0203 Re-Evaluation MDM Free Text MDM Notes Free Text MDM Notes pt feeling much better after IVF. FHTs 165. Has appt this Fri. ER return precautions discussed. ED Course Medication(s) Ordered Medication(s) Ordered: Electrolytic, Caloric, And Serg Sig/Ward Start time Last Medication Dose Route Stop Time Status Admin Sodium Chloride 1,000 ML X1ED 10/17 0154 DC 10/17 IV 10/17 015 0221 Gastrointestinal Drugs Sig/Ward Start time Last Medication Dose Route Stop Time Status Admin Ondansetron HCl 4 MG X1ED 10/17 0154 DC IV 10/17 0155 0220 Patient Discharge Departure Vital Signs/Condition Vital Signs First Documented: Result Date Time Pulse Ox 99 10/17 202 B/P 118/78 10/17 202 B/P Mean 91 10/17 202 O2 Delivery Room air 10/17 202 Temp 98.5 10/17 202 Pulse 89 10/17 0203 Resp 16 10/17 202 Last Documented: Result Date Time Pulse Ox 99 10/17 510 B/P 136/74 10/17 510 B/P Mean 94 10/17 510 O2 Delivery Room air 10/17 510 Temp 98.3 10/17 510 Pulse 77 10/17 05 Resp 18 10/17 510 All vital signs available at the time of this en try have been reviewed. Condition Stable Clinical Impression Clinical Impression Primary Impression: Hyperemesis gravidarum Disposition Decision Discharge )( Discharged to Home Yes )( Time 0507 )( Date 10/17/21 Discharge/Care Plan Counseled Regarding Diagnosis, Lab resul ts, Medication changes, Prescriptions, Need for follow-up, When to return to ED Rx Drug Database Reviewed No (Auto) Prescriptions Current Visit Scripts ONDANSETRON ODT (ZOFRAN ODT) 4 MG PO Q6H PRN PRN NAUSEA/VOMITING ONDANSETRON ODT (ZOFRAN ODT) 4 MG PO Q6H PRN AR N NAUSEA/VOMITING #12 TABS Patient Instructions ED Hyperemesis Gravidarum Additional Instructions Please keep your appointment with Dr. Enrique car n Monday. Return to the emergency room if you have any new or worsening symptoms especially worsening abdominal pain, fever, nausea vomiting and dehyd ration, vaginal bleeding. Discharge Note I have spoken with the patie nt and/or caregivers. I have explained the patient's condition, diagnoses and radha atment plan based on the information available to me at this time. I have answered the patient's and/ or caregiver's questions and addressed any concerns. The patient and/or careg estelita have as good an understanding of the patient 's diagnosis, condition and treatment plan as can be expected at this point. The vital signs have bee n stable. The patient's condition is stable and appr opriate for discharge from the emergency department. The patient will pursue further outpatient evalu ation with the primary care physician or other designated or consulting phys ician as outlined in the discharge instructions. The patient and/or caregivers are agreeable to this plan of care and follow-up instructions have been exp lained in detail. The patient and/or caregivers have received these instructio ns in written format and have expressed an understanding of the discharge inst ructions. The patient and/or caregivers are aware that any significant change in condition or worsening of symptoms should prompt an immediate return to [facility] or the closest emergency department or a call to 911. Quality Measures BP F/U for HTN F/u with PCP/other doc, BP in nor mal range at 0913 [facility] #:[id number] END OF REPORT 2020-02-09 02:30:00-00:00 PROCEDURE INFORMATION: [facility] Exam: US First Trimester, Transabdomin al and US , Transvaginal Exam date and time: 02/09/2020 2:36 AM Age: 29 years old Clinical indication: /pelvic pain TECHNIQUE: Imaging protocol: Real-time transabdominal obste trical ultrasound of the maternal pelvis and a first trimester , less than 14 weeks 0 days, with image documentation. Transvaginal imaging w as used for better evaluation of the fetus, adnexa, and/or cervix. COMPARISON: No relevant prior studies available. FINDINGS: Gestation: An intrauterine gestational sac is pr esent. No pole is yet identified. BIOMETRY: Gestational age (AUA): Measurements correlate wi a mean gestational age of five weeks 2 days. MATERNAL: Uterus: The uterus measures 8.0 x 3.3 x 4.9 cm. Cervix: Unremarkable. Right adnexa: The right ovary is not visualized. Left adnexa: The left ovary measures 4.1 x 4.3 x 3.8 cm. A left corpus luteal cyst is present. Bowel: Cylinder Inspector And Tester notes technically difficult e xam secondary to overlying bowel gas. Intraperitoneal space: No intraperitoneal free f luid. IMPRESSION: Early intrauterine . No pole yet identified. Ayaan Hauser MD On 02/09/2020 03:49:25; ELMIRA [id number]
[2022-11-10] MEDS ORDERED: AZITHROMYCIN 250 MG TAB ONE (23:56)
[2022-11-10] MEDS ORDERED: FAMOTIDINE 20 MG TAB ONE (23:56)
[2022-11-10] MEDS ORDERED: IBUPROFEN 400 MG TAB ONE (23:56)
[2022-11-11 00:08] LABS: SARS-CoV-2 Antigen Rapid Res Negative (Negative)
--- NOTE | 2022-11-11 01:25 | ER ---
Nurse's Notes [facility] Name: Narcisa Mckeon Age: 32 yrs Sex: Female : 1990 Arrival Date: 11/10/2022 Time: 23:17 Bed 11 Private MD: Diagnosis: Fever, unspecified;Acute upper respiratory infection, unspecified Presentation: 11/10 23:26 Chief complaint: Patient states: "I've had a sore throat, cough, chills, body aches, kl and fever for 3 days now.". Coronavirus screen: Vaccine status: Patient reports receiving the 2nd dose of the covid vaccine. Ebola Screen: No symptoms or risks identified at this time. Initial Sepsis Screen: Does the patient meet any 2 criteria? No. Patient's initial sepsis screen is negative. Does the patient have a suspected source of infection? No. Patient's initial sepsis screen is negative. Risk Assessment: Do you want to hurt yourself or someone else? Patient reports no desire to harm self or others. Onset of symptoms was November 10, 2022. 23:26 Method Of Arrival: Ambulatory kl 23:26 Acuity: LUIS 4 kl Triage Assessment: 23:27 General: Appears in no apparent distress. Behavior is calm, cooperative, appropriate kl for age. Pain: Denies pain. EENT: Throat is reddened. Neuro: Betancourt Agitation-Sedation Scale (RASS): 0 - Alert and Calm Level of Consciousness is awake, alert, obeys commands, Oriented to person, place, time, situation, Appropriate for age. Respiratory: Reports cough that is Airway is patent Respiratory effort is even, unlabored, Respiratory pattern is regular, symmetrical. GI: No signs and/or symptoms were reported involving the gastrointestinal system. Derm: Skin is pink, warm \\T\\ dry. 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 - Social history:: Smoking status: Patient denies any tobacco usage or history of. Screenin:49 [facility] ED Fall Risk Assessment (Adult) History of falling in the last 3 months, mb9 including since admission No falls in past 3 months (0 pts) Confusion or Disorientation No (0 pts) Intoxicated or Sedated No (0 pts) Impaired Gait No (0 pts) Mobility Assist Device Used No (0 pt) Altered Elimination No (0 pt) Score/Fall Risk Level 0 - 2 = Low Risk Oriented to surroundings, Maintained a safe environment, Educated pt \\T\\ family on fall prevention, incl call for assistance when getting out of bed. Abuse screen: Denies threats or abuse. Nutritional screening: No deficits noted. Tuberculosis screening: No symptoms or risk factors identified. Assessment: 23:48 Reassessment: see triage assessment. mb9 11/11 01:33 Reassessment: Patient appears in no apparent distress at this time. No changes from lg3 previously documented assessment. Patient and/or family updated on plan of care and expected duration. Pain level reassessed. Patient is alert, oriented x 3, equal unlabored respirations, skin warm/dry/pink. 01:33 Respiratory: No deficits noted. Airway is patent Respiratory effort is even, unlabored, lg3 Respiratory pattern is regular, symmetrical, Breath sounds are clear bilaterally. Vital Signs: 11/10 23:26 BP 127 / 84; Pulse 98; Resp 18; Temp 100.5(O); Pulse Ox 100% on R/A; Weight 104.33 kg; kl Height 5 ft. 8 in. ; 11/11 01:34 BP 122 / 86; Pulse 91; Resp 17 S; Temp 99.4(O); Pulse Ox 100% on R/A; lg3 11/10 23:26 Body Mass Index 34.97 (104.33 kg, 172.72 cm) ED Course: 11/10 23:22 Patient arrived in ED. im 23:26 Arm band placed on. kl 23:27 Triage completed. kl 23:34 Strep Sent. kl 23:34 Influenza Screen (a \\T\\ B) Sent. kl 23:34 SARS RAPID Sent. kl 23:35 Robert Bruner MD is Attending Physician. [facility] 23:48 Placed in gown. Bed in low position. Call light in reach. Side rails up X 1. Client mb9 placed on continuous cardiac and pulse oximetry monitoring. NIBP monitoring applied. 23:49 No provider procedures requiring assistance completed. Patient did not have IV access mb9 during this emergency room visit. Administered Medications: 23:48 Drug: AZITHromycin PO 500 mg Route: PO; mb9 11/11 01:35 Follow up: Response: No adverse reaction lg3 11/10 23:48 Drug: Famotidine PO 40 mg Route: PO; mb9 11/11 01:35 Follow up: Response: No adverse reaction lg3 11/10 23:48 Drug: Ibuprofen PO 800 mg Route: PO; mb9 11/11 01:35 Follow up: Response: No adverse reaction; Marked relief of symptoms; Temperature is lg3 decreased Medication: 11/10 23:48 VIS not applicable for this client. mb9 Outcome: 11/11 01:24 Discharge ordered by . ryan 01:33 Discharged to home ambulatory. lg3 01:33 Condition: stable 01:33 Discharge instructions given to patient, Instructed on discharge instructions, follow up and referral plans. medication usage, Demonstrated understanding of instructions, follow-up care, medications, Prescriptions given X 3. 01:35 Patient left the ED. lg3 Signatures: Alexus Genao RN Robert Vines MD MD cha Gibson, Lacie, RN RN lg3 Faiza Goins RN RN mb9 Ayse Price
--- NOTE | 2022-11-11 01:25 | EDPHYS ---
Physician Documentation [facility] Name: Narcisa Mckeon Age: 32 yrs Sex: Female : 1990 Arrival Date: 11/10/2022 Time: 23:17 Bed 11 Private MD: ED Physician Robert Bruner HPI: 11/11 01:17 This 32 yrs old Female presents to ER via Ambulatory with complaints of Sore ryan Throat, COVID exposure. 01:17 The patient presents with sore throat. The patient describes throat pain as constant, ryan raw. Onset: The symptoms/episode began/occurred 2 day(s) ago. Severity of symptoms: At their worst the symptoms were mild, in the emergency department the symptoms are unchanged. Modifying factors: The symptoms are alleviated by nothing, the symptoms are aggravated by nothing. Associated signs and symptoms: Pertinent positives: cough, fever, Sore throat. The patient has experienced similar episodes in the past, a few times. 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 - Social history:: Smoking status: Patient denies any tobacco usage or history of. ROS: 11/11 01:18 Constitutional: Negative for fever, chills, and weight loss, Eyes: Negative for injury, ryan pain, redness, and discharge, Neck: Negative for injury, pain, and swelling, Cardiovascular: Negative for chest pain, palpitations, and edema, Respiratory: Negative for shortness of breath, cough, wheezing, and pleuritic chest pain, Abdomen/GI: Negative for abdominal pain, nausea, vomiting, diarrhea, and constipation, Back: Negative for injury and pain, : Negative for injury, bleeding, discharge, and swelling, MS/Extremity: Negative for injury and deformity, Skin: Negative for injury, rash, and discoloration, Neuro: Negative for headache, weakness, numbness, tingling, and seizure, Psych: Negative for depression, anxiety, suicide ideation, homicidal ideation, and hallucinations, Allergy/Immunology: Negative for hives, rash, and allergies, Endocrine: Negative for neck swelling, polydipsia, polyuria, polyphagia, and marked weight changes, Hematologic/Lymphatic: Negative for swollen nodes, abnormal bleeding, and unusual bruising. ENT: Positive for nasal discharge, rhinorrhea, sore throat. Exam: 01:18 Head/Face: Normocephalic, atraumatic. Eyes: Pupils equal round and reactive to light, ryan extra-ocular motions intact. Lids and lashes normal. Conjunctiva and sclera are non-icteric and not injected. Cornea within normal limits. Periorbital areas with no swelling, redness, or edema. Neck: Trachea midline, no thyromegaly or masses palpated, and no cervical lymphadenopathy. Supple, full range of motion without nuchal rigidity, or vertebral point tenderness. No Meningismus. Chest/axilla: Normal chest wall appearance and motion. Nontender with no deformity. No lesions are appreciated. Cardiovascular: Regular rate and rhythm with a normal S1 and S2. No gallops, murmurs, or rubs. Normal PMI, no JVD. No pulse deficits. Respiratory: Lungs have equal breath sounds bilaterally, clear to auscultation and percussion. No rales, rhonchi or wheezes noted. No increased work of breathing, no retractions or nasal flaring. Abdomen/GI: Soft, non-tender, with normal bowel sounds. No distension or tympany. No guarding or rebound. No evidence of tenderness throughout. Back: No spinal tenderness. No costovertebral tenderness. Full range of motion. Skin: Warm, dry with normal turgor. Normal color with no rashes, no lesions, and no evidence of cellulitis. MS/ Extremity: Pulses equal, no cyanosis. Neurovascular intact. Full, normal range of motion. Neuro: Awake and alert, GCS 15, oriented to person, place, time, and situation. Cranial nerves II-XII grossly intact. Motor strength 5/5 in all extremities. Sensory grossly intact. Cerebellar exam normal. Normal gait. Psych: Awake, alert, with orientation to person, place and time. Behavior, mood, and affect are within normal limits. 01:18 Constitutional: The patient appears febrile. 01:18 Head/face: Exam is negative for . 01:18 ENT: Posterior pharynx: Tonsils: with erythema, Uvula: normal, midline, non-edematous, no erythema, swelling, is not appreciated, erythema, is not appreciated, exudate, is not appreciated, peritonsillar mass, is not appreciated, pooling of secretions, is not appreciated. Vital Signs: 11/10 23:26 BP 127 / 84; Pulse 98; Resp 18; Temp 100.5(O); Pulse Ox 100% on R/A; Weight 104.33 kg; kl Height 5 ft. 8 in. ; 11/11 01:34 BP 122 / 86; Pulse 91; Resp 17 S; Temp 99.4(O); Pulse Ox 100% on R/A; lg3 11/10 23:26 Body Mass Index 34.97 (104.33 kg, 172.72 cm) kl MDM: 11/10 23:35 Patient medically screened. [facility] 11/11 01:20 Differential diagnosis: Allergic rhinitis, bronchitis, viral Infection, bacterial ryan infection, URI, pneumonia cocksackie virus, echovirus infection, mishel-huff virus, erythema multiforme, gingivostomatitis, group A strep tonsillitis, human immuneo deficiency virus, herpes simplex virus, hydrops, influenza, laryngitis, peritonsillar abscess pharyngitis, tonsillitis, upper respiratory infection. Differential Diagnosis altered mental status, sepsis. Data reviewed: vital signs, nurses notes, lab test result(s), Flu: negative. Consideration of Admission/Observation Escalation of care including admission/observation considered. I considered the following discharge prescriptions or medication management in the emergency department Medications were administered in the Emergency Department. See MAR. Test considered but Not performed: Labs: NO BLOOD WORK. 11/10 23:31 Order name: SARS RAPID; Complete Time: 00:41 11/10 23:31 Order name: Influenza Screen (a \T\ B); Complete Time: 00:41 11/10 23:31 Order name: Strep; Complete Time: 00:41 11/11 00:24 Order name: Throat Culture [facility] 11/10 23:36 Order name: PO challenge; Complete Time: 23:48 [facility] Administered Medications: 11/10 23:48 Drug: AZITHromycin PO 500 mg Route: PO; 9 11/11 01:35 Follow up: Response: No adverse reaction 3 11/10 23:48 Drug: Famotidine PO 40 mg Route: PO; 9 11/11 01:35 Follow up: Response: No adverse reaction lg3 11/10 23:48 Drug: Ibuprofen PO 800 mg Route: PO; mb9 11/11 01:35 Follow up: Response: No adverse reaction; Marked relief of symptoms; Temperature is lg3 decreased Disposition Summary: 11/11/22 01:24 Discharge Ordered Location: Home [facility] Problem: new ryan Symptoms: have improved ryan Condition: Stable [facility] Diagnosis - Fever, unspecified ryan - Acute upper respiratory infection, unspecified ryan Followup: [facility] - With: Private Physician - When: 2 - 3 days - Reason: Recheck today's complaints, Continuance of care, Re-evaluation by your physician Discharge Instructions: - Discharge Summary Sheet [facility] - Fever, Adult ryan - Upper Respiratory Infection, Adult ryan - Cool Mist Vaporizer ryan - Upper Respiratory Infection, Adult, [id number] ryan - Cough, Adult, [id number] ryan - Cough, Adult ryan Forms: - Medication Reconciliation Form [facility] - Thank You Letter [facility] - Antibiotic Education [facility] - Prescription Opioid Use [facility] - Patient Portal Instructions [facility] Prescriptions: - Susy-D 12 Hour 60-120 mg Oral Tablet Sustained Release 12 hr - take 1 tablet by ORAL route every 12 hours As needed; 20 tablet; Refills: 0, [facility] Product Selection Permitted - Tessalon Perles 100 mg Oral Capsule - take 2 capsule by ORAL route every 8 hours As needed; 30 capsule; Refills: 0, [facility] Product Selection Permitted - Zithromax Z-Costa 250 mg Oral Tablet - take 1 tablet by ORAL route as directed for 5 days Day 1 - take two (2) tablets ryan one time. Day 2, 3, 4 , 5 take one (1) tablet once daily.; 6 tablet; Refills: 0, Product Selection Permitted Signatures: Dispatcher [employer] Alexus Alston, RN Robert Vines MD MD cha Breneman, Faiza Lama RN RN Rosey Lopez RN lg3
[2022-11-11 01:39] VITALS: O2SAT 100
[2022-11-11 01:41] VITALS: BP 122/86; TEMP 99.4
== END 2022-11-11 01:35 | disposition home or self-care (01) ==
LOC: ER 23:17
DX: J06.9 Acute upper respiratory infection, unspecified (principal); Z20.822 Contact with and (suspected) exposure to COVID-19; Z88.1 Allergy status to other antibiotic agents
CPT/HCPCS: 36415; 87070; 87081; 87804; 87811; 99284

== ENCOUNTER 2023-09-29 04:42 | Emergency (ER) | payer OTHER ==
[2023-09-29] MEDS ORDERED: NA CHLORIDE 0.9% 1,000 ML ONE ×2 (05:17→07:13)
[2023-09-29 05:48] LABS: Absolute Eosinophils 0.1 K/uL (0-0.5); Absolute Lymphocytes (CBC) 2.3 K/uL (0.7-4.9); Absolute Monocytes 0.5 K/uL (0.1-1.3); Absolute Neutrophil 4.2 K/uL (1.8-8.0); Basophils % 0.4 % (0-1.3); Hematocrit 37.1 % (36.0-45.0); Hemoglobin 12.6 g/dL (12.0-15.0); Lymphocytes % 32.4 % (15.3-44.8); MCH 29.7 pg (27.0-35.0); MCHC 33.8 g/dL (32.0-36.0); MCV 87.8 fL (80-100); MPV 8.6 fL (7.6-11.3); Monocytes % 7.1 % (3.3-12.3); Neutrophils % 59.1 % (41.7-73.7); Nucleated Red Blood Cells % 0.1 % (0-0); Platelets 244 thou/uL (152-406); RBC Red Blood Cell Count 4.23 M/uL (3.86-4.86); Red Cell Distribution Width 13.3 % (12.1-15.2)
[2023-09-29] MEDS ORDERED: ONDANSETRON 4 MG/2 ML VIAL ONE (05:50)
[2023-09-29 06:05] LABS: ALT/SGPT 15 U/L (13-56); Albumin 2.9 g/dL (3.4-5.0); Albumin/Globulin Ratio 0.7 (1.1-1.8); Alkaline Phosphatase 52 U/L (45-117); Anion Gap 8.9 mEq/L (5.0-15.0); BUN Blood Urea Nitrogen 12 mg/dL (7-18); Bicarbonate 23 mEq/L (21-32); Globulin 4.3 g/dL (2.3-3.5); Glomerular Filtration Rate 118 ml/min (=/>90); Glucose Level 96 mg/dL (74-106); Potassium 3.9 mEq/L (3.5-5.1); Protein, Total 7.2 g/dL (6.4-8.2); Sodium Level 136 mEq/L (136-145)
[2023-09-29 06:07] LABS: AST/SGOT < 10 U/L (15-37); Bilirubin Direct < 0.2 mg/dL (0-0.2); Bilirubin Total < 0.2 mg/dL (0.2-1.0)
--- NOTE | 2023-09-29 07:01 | EDPHYS ---
Physician Documentation [facility] Name: Narcisa Mckeon Age: 33 yrs Sex: Female : 1990 Arrival Date: 09/29/2023 Time: 04:42 Bed 14 Private MD: ED Physician Robert Bruner HPI: 09/28 05:13 This 33 yrs old Black Female presents to ER via Unassigned with complaints of 19 WEEKS ryan PREG, PT STATES SHE IS DEHYDRATED. 05:13 nausea vomiting. Onset: The symptoms/episode began/occurred 4 day(s) ago. Severity of ryan symptoms: At their worst the symptoms were mild moderate in the emergency department the symptoms are unchanged. The patient has experienced similar episodes in the past, a few times. 05:22 The patient presents to the emergency department with nausea, vomiting, that is ryan intermittent, described as bilious. Possible causes: unknown. The symptoms are aggravated by food , The symptoms are alleviated by nothing. The estimated gestational age is 19 weeks. course: care: at a clinic, private OB physician. 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 - Infectious Disease History:: Denies. - Family history:: not pertinent. - Social history:: Smoking status: Patient denies any tobacco usage or history of. ROS: 05:15 Constitutional: Negative for fever, chills, and weight loss, Eyes: Negative for injury, ryan pain, redness, and discharge, ENT: Negative for injury, pain, and discharge, Neck: Negative for injury, pain, and swelling, Cardiovascular: Negative for chest pain, palpitations, and edema, Respiratory: Negative for shortness of breath, cough, wheezing, and pleuritic chest pain, Back: Negative for injury and pain, : Negative for injury, bleeding, discharge, and swelling, MS/Extremity: Negative for injury and deformity, Skin: Negative for injury, rash, and discoloration, Neuro: Negative for headache, weakness, numbness, tingling, and seizure, Psych: Negative for depression, anxiety, suicide ideation, homicidal ideation, and hallucinations, Allergy/Immunology: Negative for hives, rash, and allergies, Endocrine: Negative for neck swelling, polydipsia, polyuria, polyphagia, and marked weight changes, Hematologic/Lymphatic: Negative for swollen nodes, abnormal bleeding, and unusual bruising, 05:15 Abdomen/GI: Positive for nausea and vomiting, abdominal distension, 06:58 : Negative for urinary symptoms, urinary frequency, small amounts, hematuria, pelvic ryan pain, flank pain, burning with urination, difficulty urinating, foul smelling urine, Exam: 05:15 Constitutional: This is a well developed, well nourished patient who is awake, alert, ryan and in no acute distress. Head/Face: Normocephalic, atraumatic. Eyes: Pupils equal round and reactive to light, extra-ocular motions intact. Lids and lashes normal. Conjunctiva and sclera are non-icteric and not injected. Cornea within normal limits. Periorbital areas with no swelling, redness, or edema. ENT: Nares patent. No nasal discharge, no septal abnormalities noted. Tympanic membranes are normal and external auditory canals are clear. Oropharynx with no redness, swelling, or masses, exudates, or evidence of obstruction, uvula midline. Mucous membranes moist. Neck: Trachea midline, no thyromegaly or masses palpated, and no cervical lymphadenopathy. Supple, full range of motion without nuchal rigidity, or vertebral point tenderness. No Meningismus. Chest/axilla: Normal chest wall appearance and motion. Nontender with no deformity. No lesions are appreciated. Cardiovascular: Regular rate and rhythm with a normal S1 and S2. No gallops, murmurs, or rubs. Normal PMI, no JVD. No pulse deficits. Respiratory: Lungs have equal breath sounds bilaterally, clear to auscultation and percussion. No rales, rhonchi or wheezes noted. No increased work of breathing, no retractions or nasal flaring. Abdomen/GI: Soft, non-tender, with normal bowel sounds. No distension or tympany. No guarding or rebound. No evidence of tenderness throughout. Back: No spinal tenderness. No costovertebral tenderness. Full range of motion. Skin: Warm, dry with normal turgor. Normal color with no rashes, no lesions, and no evidence of cellulitis. MS/ Extremity: Pulses equal, no cyanosis. Neurovascular intact. Full, normal range of motion. Neuro: Awake and alert, GCS 15, oriented to person, place, time, and situation. Cranial nerves II-XII grossly intact. Motor strength 5/5 in all extremities. Sensory grossly intact. Cerebellar exam normal. Normal gait. Psych: Awake, alert, with orientation to person, place and time. Behavior, mood, and affect are within normal limits. 07:24 : FHT 135 B/M, ryan Vital Signs: 05:19 BP 117 / 96; Pulse 87; Resp 16; Temp 97.7; Pulse Ox 100% ; Weight 113.4 kg; Height 5 vc1 ft. 9 in. ; Pain 0/10; 06:57 BP 143 / 71; Pulse 89; Resp 18; Pulse Ox 100% ; pc2 07:45 BP 133 / 77; Pulse 79; Resp 17; Pulse Ox 99% on R/A; rs5 05:19 Body Mass Index 36.92 (113.40 kg, 175.26 cm) vc1 05:19 Pain Scale: Adult vc1 [place] Coma Score: 05:15 Eye Response: spontaneous(4). Motor Response: obeys commands(6). Verbal Response: ryan oriented(5). Total: 15. MDM: 04:55 Patient medically screened. [facility] 05:16 Differential diagnosis: Nonspecific abd pain, gastritis, cholecystitis, pancreatitis, ryan viral gastroenteritis, gastroenteritis. Data reviewed: vital signs, nurses notes, lab test result(s). Consideration of Admission/Observation Escalation of care including admission/observation considered. I considered the following discharge prescriptions or medication management in the emergency department Medications were administered in the Emergency Department. See MAR. Test considered but Not performed: Ultrasound no ob usg, no ctx, no lof, no vaginal bleeding. Care significantly affected by the following chronic conditions: none. 09/28 04:59 Order name: Basic Metabolic Panel; Complete Time: 06:55 [facility] 09/28 04:59 Order name: CBC with Diff; Complete Time: 06:55 [facility] 09/28 04:59 Order name: Test, Urine; Complete Time: 07:23 [facility] 09/28 04:59 Order name: Urinalysis w/ reflexes; Complete Time: 07:23 [facility] 09/28 04:59 Order name: LFT's; Complete Time: 06:55 [facility] 09/28 07:08 Order name: Urine Culture [facility] 09/28 04:59 Order name: IV Saline Lock; Complete Time: 05:32 [facility] 09/28 04:59 Order name: Labs collected and sent; Complete Time: 05:32 [facility] 09/28 04:59 Order name: NPO; Complete Time: 05:32 [facility] 09/28 04:59 Order name: FHT's; Complete Time: 07:09 [facility] 09/28 06:56 Order name: Misc. Order: get ua; Complete Time: 07:06 [facility] 09/28 07:00 Order name: PO challenge; Complete Time: 09:24 [facility] Administered Medications: 05:25 Drug: NS 0.9% IV 1000 ml IV at 1 bolus Per protocol; 1000 mL bolus Route: IV; Rate: 1 pc2 bolus; Site: right antecubital; 06:50 Follow up: Response: No adverse reaction pc2 05:51 Drug: Ondansetron IVP 4 mg IVP once; over 2 minutes Route: IVP; Site: right antecubital;pc2 06:50 Follow up: Response: No adverse reaction pc2 07:28 Drug: NS 0.9% IV 1000 ml IV at 1 bolus Per protocol; 1000 mL bolus Route: IV; Rate: 1 pc2 bolus; Site: right antecubital; 08:00 Follow up: Response: No adverse reaction rs5 Disposition Summary: 09/29/23 07:00 Discharge Ordered Notes: Location: Home ryan Problem: new ryan Symptoms: have improved ryan Condition: Stable ryan Diagnosis - 19 weeks gestation of ryan - Vomiting ryan - Dehydration ryan Followup: ryan - With: Private Physician - When: 2 - 3 days - Reason: Recheck today's complaints, Continuance of care, Re-evaluation by your physician Discharge Instructions: - Discharge Summary Sheet ryan - Dehydration, Adult ryan - Care ryan - Vomiting, Adult ryan Forms: - Medication Reconciliation Form ryan - Antibiotic Education ryan - Prescription Opioid Use ryan - Patient Portal Instructions ryan - Leadership Thank You Letter ryan Prescriptions: - ondansetron 4 mg Oral Tablet,disintegrating - take 1 tablet ORAL route every 6-8 hours; 20 tablet; Refills: 0, Product [facility] Selection Permitted - Diclegis 10-10 mg Oral tablet, delayed release (enteric coated) - take 1 tablet ORAL route 3 times per day; 45 tablet; Refills: 0, Product [facility] Selection Permitted Signatures: Dispatcher [employer] Robert Jo MD MD cha Calcote, Vanessa, RN RN vc1 Noelle salazar RN RN pc2 Javon Weber RN rs5 Corrections: (The following items were deleted from the chart) 07:08 07:08 Urine Culture+[id number].LAB.BRZ ordered. EDNH EDNH
--- NOTE | 2023-09-29 07:01 | ER ---
Nurse's Notes [facility] Name: Narcisa Mckeon Age: 33 yrs Sex: Female : 1990 Arrival Date: 09/29/2023 Time: 04:42 Bed 14 Private MD: Diagnosis: 19 weeks gestation of ;Vomiting;Dehydration Presentation: 09/28 05:19 Chief complaint: Patient states: I am 19 weeks and have been vomiting a lot vc1 the last few days. I am afraid I am dehydrated because I am so dizzy. Coronavirus screen: Vaccine status: Patient reports being unvaccinated. Client denies travel out of the [place] in the last 14 days. At this time, the client does not indicate any symptoms associated with coronavirus-19. Ebola Screen: Patient negative for fever greater than or equal to 101.5 degrees Fahrenheit, and additional compatible Ebola Virus Disease symptoms Patient denies exposure to infectious person. Patient denies travel to an Ebola-affected area in the 21 days before illness onset. No symptoms or risks identified at this time. Initial Sepsis Screen: Does the patient meet any 2 criteria? No. Patient's initial sepsis screen is negative. Does the patient have a suspected source of infection? No. Patient's initial sepsis screen is negative. Risk Assessment: Do you want to hurt yourself or someone else? Patient reports no desire to harm self or others. Onset of symptoms is unknown. 05:19 Method Of Arrival: Ambulatory vc1 05:19 Acuity: LUIS 4 vc1 Triage Assessment: 05:24 General: Appears in no apparent distress. uncomfortable, Behavior is calm, cooperative, vc1 appropriate for age, Reports vomiting. Pain: Denies pain. EENT: No deficits noted. No signs and/or symptoms were reported regarding the EENT system. Neuro: Level of Consciousness is awake, alert, obeys commands, Oriented to person, place, time, situation, Appropriate for age Reports dizziness. Cardiovascular: Capillary refill < 3 seconds Patient's skin is warm and dry. Respiratory: Airway is patent Respiratory effort is even, unlabored, Respiratory pattern is regular, symmetrical. GI: Reports intolerance of fluids, intolerance of food, nausea, vomiting. Derm: Skin is intact, is healthy with good turgor, Skin is dry, Skin is normal, Skin temperature is warm. 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 - Infectious Disease History:: Denies. - Family history:: not pertinent. - Social history:: Smoking status: Patient denies any tobacco usage or history of. Screenin:23 [facility] ED Fall Risk Assessment (Adult) History of falling in the last 3 months, vc1 including since admission No falls in past 3 months (0 pts) Confusion or Disorientation No (0 pts) Intoxicated or Sedated No (0 pts) Impaired Gait No (0 pts) Mobility Assist Device Used No (0 pt) Altered Elimination No (0 pt) Score/Fall Risk Level 0 - 2 = Low Risk Oriented to surroundings, Maintained a safe environment, Educated pt \T\ family on fall prevention, incl call for assistance when getting out of bed. Abuse screen: Denies threats or abuse. Nutritional screening: No deficits noted. Tuberculosis screening: No symptoms or risk factors identified. Assessment: 05:35 General: Appears in no apparent distress. comfortable, well groomed, Behavior is calm, pc2 cooperative. Pain: Denies pain. Neuro: Level of Consciousness is awake, alert, Oriented to person, place, time, situation, Gait is steady. Neuro:. Cardiovascular: Capillary refill < 3 seconds Patient's skin is warm and dry. Cardiovascular: Reports lightheadedness. Respiratory: Airway is patent Respiratory effort is even, unlabored, Respiratory pattern is regular, symmetrical. GI: Abdomen is round Reports nausea, vomiting, since 4 days. : No signs and/or symptoms were reported regarding the genitourinary system. EENT: No signs and/or symptoms were reported regarding the EENT system. Derm: No signs and/or symptoms reported regarding the dermatologic system. Musculoskeletal: No signs and/or symptoms reported regarding the musculoskeletal system. 06:49 Reassessment: Patient and/or family updated on plan of care and expected duration. Pain rs5 level reassessed. Patient is alert, oriented x 3, equal unlabored respirations, skin warm/dry/pink. Patient states feeling better. Patient states symptoms have improved. 07:36 Reassessment: No changes from previously documented assessment. rs5 Vital Signs: 05:19 BP 117 / 96; Pulse 87; Resp 16; Temp 97.7; Pulse Ox 100% ; Weight 113.4 kg; Height 5 vc1 ft. 9 in. ; Pain 0/10; 06:57 BP 143 / 71; Pulse 89; Resp 18; Pulse Ox 100% ; pc2 07:45 BP 133 / 77; Pulse 79; Resp 17; Pulse Ox 99% on R/A; rs5 05:19 Body Mass Index 36.92 (113.40 kg, 175.26 cm) vc1 05:19 Pain Scale: Adult vc1 Anni Coma Score: 05:15 Eye Response: spontaneous(4). Motor Response: obeys commands(6). Verbal Response: ryan oriented(5). Total: 15. ED Course: 04:48 Patient arrived in ED. gm2 04:55 Robert Bruner MD is Attending Physician. ryan 05:14 Noelle salazar, RN is Primary Nurse. pc2 05:22 Triage completed. vc1 05:24 Patient has correct armband on for positive identification. Bed in low position. Pulse vc1 ox on. NIBP on. 05:24 Patient placed in the treatment room, on a stretcher, on pulse oximetry. pc2 05:32 Basic Metabolic Panel Sent. pc2 05:32 CBC with Diff Sent. pc2 05:35 Provided Education on: POC and time frame. pc2 07:00 Unable to get FHT using doppler x multiple attempts. Heartbeat verified using US. pc2 07:06 Urinalysis w/ reflexes Sent. pc2 07:07 Test, Urine Sent. pc2 07:08 No provider procedures requiring assistance completed. pc2 07:10 Report given to ALLAN Alejandro. pc2 08:00 IV discontinued, intact, bleeding controlled, No redness/swelling at site. Pressure rs5 dressing applied. Administered Medications: 05:25 Drug: NS 0.9% IV 1000 ml IV at 1 bolus Per protocol; 1000 mL bolus Route: IV; Rate: 1 pc2 bolus; Site: right antecubital; 06:50 Follow up: Response: No adverse reaction pc2 05:51 Drug: Ondansetron IVP 4 mg IVP once; over 2 minutes Route: IVP; Site: right antecubital;pc2 06:50 Follow up: Response: No adverse reaction pc2 07:28 Drug: NS 0.9% IV 1000 ml IV at 1 bolus Per protocol; 1000 mL bolus Route: IV; Rate: 1 pc2 bolus; Site: right antecubital; 08:00 Follow up: Response: No adverse reaction rs5 Medication: 05:24 VIS not applicable for this client. vc1 Outcome: 07:00 Discharge ordered by . ryan 08:00 Discharged to home ambulatory, elroy 08:00 Condition: stable 08:00 Discharge instructions given to patient, family, Instructed on discharge instructions, follow up and referral plans. medication usage, Demonstrated understanding of instructions, follow-up care, medications, 08:00 Prescriptions given X 2, 08:05 Patient left the ED. rs5 Signatures: Robert Bruner MD MD cha Calcote, Vanessa, RN RN vc1 Javon Weber, RN RN rs5 Lydia Martínez gm2 Noelle salazar, RN RN pc2
[2023-09-29 07:18] LABS: Specific Gravity 1.018 (1.005-1.030); Urine Bilirubin NEGATIVE (Negative); Urine Blood Negative (Negative); Urine Clarity Clear (Clear); Urine Color Light-Yellow (Yellow); Urine Glucose NEGATIVE (Negative); Urine Ketones 1+ (Negative); Urine Microscopic Reflex YN NO UMIC; Urine Nitrite NEGATIVE (Negative); Urine Protein NEGATIVE (Negative); Urine Urobilinogen Normal (Normal)
[2023-09-29 07:21] LABS: Specific Gravity 1.018 (1.005-1.030)
[2023-09-29 08:17] VITALS: BP 143/71; TEMP 97.7; O2SAT 100
== END 2023-09-29 08:05 | disposition home or self-care (01) ==
LOC: ER 04:42
DX: O99.282 Endocrine, nutritional and metabolic diseases complicating pregnancy, second trimester (principal); E86.0 Dehydration; Z3A.19 19 weeks gestation of pregnancy; Z88.8 Allergy status to other drugs, medicaments and biological substances
CPT/HCPCS: 87088; 85025; 87086; 80048; 36415; 81025; 80076; 81003; 96374; 99284; J2405; J7030 ×2